=== PATIENT | female | born 1950 | race Caucasian/White ===

== ENCOUNTER 2017-08-08 12:56 | Inpatient (IN) | payer MEDICARE, MEDICAID ==
--- NOTE | 2017-08-08 13:36 | ED Physician Chart ---
ED Chief Complaint/HPI - Patient Information Date Seen:: 08/08/17 Time Seen:: 13:25 Chief Complaint:: hallucinations History of Present Illness:: Patient states she has a stalker and notified the police. Yesterday patient developed pruritic lesions which she said are bed bug bites. Vitals:: Vital Signs - 8 hr 08/08/17 13:05 Temp 98.5 F HR 95 RR 18 BP 129/78 O2 Sat % 99 Historian:: Patient Review:: Nurse's Note Reviewed ED Review of Systems - Review of Systems General/Constitutional: No fever, No chills Skin: Skin lesions, Rash Head: Headache Eyes: No loss of vision ENT: No earache Neck: Neck pain Cardio Vascular: No chest pain Pulmonary: No SOB GI: No nausea, No vomiting G/U: No dysuria Musculoskeletal: Bone or joint pain Endocrine: No polyuria Psychiatric: Prior psych history Hematopoietic: No bruising Allergic/Immuno: No urticaria Neurological: No syncope, No focal symptoms ED Past Medical History - Past Medical History Past Medical History: PUD/GERD (patient states she had a brain bleed in 1992 which did not require craniotomy), Other Family History: Heart disease Social History: Smoker, No Alcohol, Care Facility Employment:: Smokes one half pack of cigarettes per day Surgical History: Appendectomy, Hysterectomy, other (ectopic ; breast augmentation) Psychiatricy History: Schizophrenia Medication: Reviewed Family Medical History - Family Member Father Age: 70 Ethnicity: Non- Living Status: Hx Family Cancer: Yes ED Physical Exam - Physical Examination General/Constitutional: Well-developed, well-nourished, Alert, No distress Other Gen/Cons comments:: Patient knows the exact date Head: Atraumatic Eyes: Lids, conjuctiva normal, PERRL Other Skin comments:: 5 nodules up to about 2 cm in diameter on anterior chest and extremities ENMT: External ears, nose nl, Oropharynx nl Other ENMT comments:: few teeth present Neck: No nuchal rigidity Respiratory: Nl effort/Exclusion, Clear to Auscultation Cardio Vascular: RRR, No murmur, gallop, rubs, NL S1 S2 GI: No tenderness/rebounding/guarding, No organomegaly, No hernia, Normal BS's, Nondistended, No mass/bruits, No McBurney tenderness Extremities: Normal digits & nails Neuro/Psych: No focal deficits Misc: Normal back ED Labs/Radiology/EKG Results - Lab Results Results: Laboratory Results - last 24 hr 08/08/17 08/08/17 08/08/17 13:40 13:40 13:40 WBC 9.3 RBC 4.52 Hgb 14.0 Hct 41.9 MCV 92.6 MCH 31.0 MCHC Differential 33.5 RDW 13.1 Plt Count 323 MPV 7.1 Neutrophils % 49.9 Lymphocytes % 34.2 Monocytes % 12.8 H Eosinophils % 2.7 Basophils % 0.4 Sodium 137 Potassium 3.8 Chloride 105 Carbon Dioxide 25.3 Anion Gap 10.5 BUN 15 Creatinine 0.9 Est GFR ( Amer) > 60.0 Est GFR (Non-Af Amer) > 60.0 BUN/Creatinine Ratio 16.7 Glucose 114 H Hemoglobin A1c % 5.4 Calcium 9.3 Total Bilirubin 0.3 AST 17 ALT 11 Alkaline Phosphatase 101 Total Protein 6.9 Albumin 4.0 Globulin 2.9 Albumin/Globulin Ratio 1.4 Triglycerides 125 Cholesterol 226 H LDL Cholesterol Direct 153 HDL Cholesterol 59 Salicylates < 25.0 L Acetaminophen < 10.0 L Ethyl Alcohol < 10 - EKG Interpretations Rate & Rhythm: normal sinus rhythm; rate 83; old inferior myocardial infarction Comments:: Probable old anterior septal VT with a Q wave in V3. ED Assessment - Assessment General Assessment: Skin lesions look like insect bites not scabies ED Septic Shock - . Is Septic Shock (SBP<90, OR Lactate>4 mmol\L) present?: No - <6hrs of presentation: Vital Signs: Vital Signs - 8 hr 08/08/17 13:05 Temp 98.5 F HR 95 RR 18 BP 129/78 O2 Sat % 99 ED Reassessment (Disposition) - Reassessment Reassessment Condition:: Unchanged - Diagnosis Diagnosis:: Schizophrenia; insect bite - Patient Disposition Admitted to:: [facility] Admitting Medical Physician:: Jovan Govea Admitting Psych Physician:: Cherie Maguire Condition at Disposition:: Stable, Unchanged ED Discharge Plan - Patient Disposition Instructions: Psychosis
[2017-08-08 13:51] LABS: % BASOPHILS 0.4 % (0.0-2.0); % EOSINOPHILS 2.7 % (0.0-5.0); % LYMPHOCYTES 34.2 % (20.0-50.0); % MONOCYTES 12.8 % (2.0-10.0); % NEUTROPHILS 49.9 % (40.0-80.0); HEMATOCRIT 41.9 % (41.0-60); MEAN CELL VOLUME 92.6 fl (81-100); MEAN CORPUSCULAR HGB CONC 33.5 pg (28.0-36.0); MEAN PLATELET VOLUME 7.1 fl; NEUTROPHILE ABSOLUTE 4.6 Th/cmm (1.8-8.0); PLATELET COUNT 323 Th/cmm (150-400); RED BLOOD COUNT 4.52 Mil/cmm (3.80-5.20); RED CELL DISTRIBUTION WIDTH 13.1 % (11.5-20.0); WHITE BLOOD COUNT 9.3 Th/cmm (4.8-10.8)
[2017-08-08 14:10] LABS: ACETAMINOPHEN < 10.0 ug/mL (10.0-30.0); ALB/GLOB RATIO 1.4 (1.0-1.8); ALKALINE PHOSPHATASE 101 U/L (34-104); ANION GAP 10.5 (7.0-16.0); BILIRUBIN,TOTAL 0.3 mg/dL (0.3-1.0); BUN - UREA NITROGEN 15 mg/dL (7-25); BUN/CREATININE RATIO 16.7; CALCIUM SERUM 9.3 mg/dL (8.6-10.3); CARBON DIOXIDE 25.3 mEq/L (21.0-31.0); CHLORIDE 105 mEq/L (98-107); CHOLESTEROL 226 mg/dL (<200); CREATININE - SERUM 0.9 mg/dL (0.6-1.2); GLUCOSE 114 mg/dL (40-70); POTASSIUM SERUM 3.8 mEq/L (3.5-5.1); SGOT 17 U/L (13-39); SGPT/ALT 11 U/L (7-52); SODIUM SERUM 137 mEq/L (136-145); TRIGLYCERIDES 125 mg/dL (<150)
[2017-08-08] MEDS ORDERED: Haloperidol Lactate 5 mg/mL 1mL Vial ONE (14:55)
[2017-08-08] MEDS ORDERED: Haloperidol Lactate 5 mg/mL 1mL Vial IM ONE (15:00)
[2017-08-08 15:29] VITALS: BP 137/71
[2017-08-08] MEDS ORDERED: Magnesium Hydroxide (MOM) 30 mL UDC PO PRN (15:31)
[2017-08-08] MEDS ORDERED: Maalox 30 mL Cup PO PRN (15:31)
--- NOTE | 2017-08-08 21:13 | History & Physical ---
ADMIT DATE: 08/08/2017 CHIEF COMPLAINT: Psychosis. HISTORY OF PRESENT ILLNESS: The patient is a 66-year-old female with long history of dementia, gastroesophageal refulx, degenerative joint disease, insomnia, admitted to [facility] under Dr. Maguire's service for evaluation and treatment. Apparently, the patient had been very agitated, psychotic. No fever, no chills, no nausea, no vomiting. The patient resumed her medication and diet. PAST MEDICAL HISTORY: Significant for dementia, degenerative joint disease, gastroesophageal refulx, and hyperlipidemia. PAST SURGICAL HISTORY: No recent surgery. ALLERGIES: None. MEDICATIONS: Follow admission reconciliation. SOCIAL HISTORY: No smoking, alcohol, or drugs. FAMILY HISTORY: Noncontributory. REVIEW OF SYSTEMS: RENAL SYSTEM: No history of chronic renal disorder. CARDIOVASCULAR SYSTEM: No coronary artery disease. ENDOCRINE SYSTEM: No diabetes or thyroid problem. GASTROINTESTINAL SYSTEM: No upper or lower GI bleed. NEUROLOGICAL SYSTEM: She has history of dementia, psychosis. MUSCULOSKELETAL SYSTEM: She has degenerative joint disease. PHYSICAL EXAMINATION: GENERAL: She is awake, not coherent. VITAL SIGNS: Temperature 97.9, heart rate 98, blood pressure 137/71. HEENT: Normocephalic. Pupils are reacting to light and accommodation. Sclerae clear. NECK: Supple. Negative for lymphadenopathy, JVD, or bruit. CHEST: Bilateral normal. No rhonchi or wheezing. HEART: S1, S2 normal, no gallop. ABDOMEN: Soft, bowel sounds positive. EXTREMITIES: No edema on exam. BACK: No overt tenderness. SKIN: Intact. BREASTS AND PELVIC EXAM: Done by the primary physician, no complaint. NEUROLOGICAL: She is awake, not coherent. She is moving upper and lower extremities. LABORATORY DATA: White blood cells 9.3, hemoglobin 14, hematocrit 41.9, and platelets 323. Sodium 137, potassium 3.8, BUN 15, creatinine 0.9, glucose 114, cholesterol 226. ASSESSMENT: 1. Degenerative joint disease. 2. Gastroesophageal reflux disease. 3. Hyperlipidemia. 4. Dementia. 5. Psychosis. PLAN: The patient was admitted to the hospital under Dr. Maguire's service. MEDICAL PROBLEMS TO BE ADDRESSED DURING HOSPITALIZATION: Psychosis and dementia. MEDICAL PROBLEMS TO BE ADDRESSED AT DISCHARGE: Degenerative joint disease, gastroesophageal reflux, hyperlipidemia. The patient is medically stable for activity. Thank you, Dr. Maguire, for asking me to see your patient. JOB# [id number]
--- NOTE | 2017-08-09 11:53 | Psychosocial Evaluation ---
DATE OF SERVICE: IDENTIFYING INFORMATION: The patient is a 66-year-old female. CHIEF COMPLAINT: "They stole my money." HISTORY OF PRESENT ILLNESS: The patient was referred from a [facility]. The patient was put on a hold for grave disability. The patient was very paranoid, believed people are after her to hurt her, anxious, restless, eloped from the Emergency Room, disoriented, unpredictable, labile, dirty, unable to formulate a safe plan for self-care. When I talked to her, she said she went to this horrible place called [facility] in [place] and she wanted them to find another place and she felt very upset there. She did not like the place and she said they liked her and sent her here. She was not a very great historian. She was denying that she was trying to harm herself or anybody. She was minimizing the events that led to her admission. PAST PSYCHIATRIC HISTORY: The patient reports she has been hospitalized before many times that she has recently been in the hospital for 4 months. However, when asked about ____ [place]; however, she says she did not like it and they sent her to a [facility] and now she is supposed to go to [facility] from here, but she is refusing to go to anywhere. She reports that she wants to be in a place to be close to transportation. When I explained to her that [facility] is in [place] and that is where she wanted to be, she agreed to think about it. The patient reports she has a prior suicide attempt by overdose. ALLERGIES: The patient has no known drug allergy. MEDICATIONS: She has been on many medications including Seroquel 400 mg twice a day. Also, she is on Klonopin and Thorazine. The patient is unable to tell me the name of her medication, but this is information from the [facility]. FAMILY AND SOCIAL HISTORY: The patient reports that she is . She has one daughter, has nothing to do with her. She says she lost ____, was unable to explain to me how. 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 She was unable to tell if there is any family psychotic disorder. She was talking about her daughter, she has mental illness. She is having a legal problem. MENTAL STATUS EXAMINATION: The patient is appropriately dressed, not well groomed. She looks disheveled. She was paranoid. She has pressured speech. She was easily distracted. She has not been sleeping or eating well, easily agitated, unable to make safe plan for self-care. Her long-term is good for her age, date of . However, she was unable to tell me the exact date, states 08/11/2017. Her immediate memory is poor. She had different account about what happened. Her insight and judgment is impaired. IMPRESSION: AXIS I: Bipolar disorder with psychosis. MEDICAL DIAGNOSES: Deferred to the medical doctor. Her assets, she is accepting treatment. Negative poor coping skills. INITIAL TREATMENT PLAN: The patient will be continued with the Seroquel; however, given her small dose 200 mg twice a day as she is also on Klonopin and Ativan, I chose to keep her only on Ativan as needed. We will do group therapy, milieu therapy, individual therapy. ESTIMATED LENGTH OF STAY: 3-7 days. DISCHARGE CRITERIA: Decreasing psychosis, agitation. After discharge, outpatient treatment. [facility]# [id number]
--- NOTE | 2017-08-09 17:33 | Internal Medicine Prog Note ---
Internal Medicine Subjective - Subjective Service Date: 08/09/17 Patient seen and examined:: with staff (she has headach.she also needs medication for acid reflex.) Patient is:: awake, verbal, in bed, talking Patient Complaints of:: headache Per staff patient has:: no adverse event Internal Medicine Objective - Results Result Diagrams: 08/08/17 13:40 08/08/17 13:40 Recent Labs: Laboratory Last Values WBC 9.3 Th/cmm (4.8-10.8) 08/08/17 13:40 RBC 4.52 Mil/cmm (3.80-5.20) 08/08/17 13:40 Hgb 14.0 gm/dL (12-16) 08/08/17 13:40 Hct 41.9 % (41.0-60) 08/08/17 13:40 MCV 92.6 fl (81-100) 08/08/17 13:40 MCH 31.0 pg (27.0-31.0) 08/08/17 13:40 MCHC Differential 33.5 pg (28.0-36.0) 08/08/17 13:40 RDW 13.1 % (11.5-20.0) 08/08/17 13:40 Plt Count 323 Th/cmm (150-400) 08/08/17 13:40 MPV 7.1 fl 08/08/17 13:40 Neutrophils % 49.9 % (40.0-80.0) 08/08/17 13:40 Lymphocytes % 34.2 % (20.0-50.0) 08/08/17 13:40 Monocytes % 12.8 % (2.0-10.0) H 08/08/17 13:40 Eosinophils % 2.7 % (0.0-5.0) 08/08/17 13:40 Basophils % 0.4 % (0.0-2.0) 08/08/17 13:40 Sodium 137 mEq/L (136-145) 08/08/17 13:40 Potassium 3.8 mEq/L (3.5-5.1) 08/08/17 13:40 Chloride 105 mEq/L (98-107) 08/08/17 13:40 Carbon Dioxide 25.3 mEq/L (21.0-31.0) 08/08/17 13:40 Anion Gap 10.5 (7.0-16.0) 08/08/17 13:40 BUN 15 mg/dL (7-25) 08/08/17 13:40 Creatinine 0.9 mg/dL (0.6-1.2) 08/08/17 13:40 Est GFR ( Amer) > 60.0 ml/min (>90) 08/08/17 13:40 Est GFR (Non-Af Amer) > 60.0 ml/min 08/08/17 13:40 BUN/Creatinine Ratio 16.7 08/08/17 13:40 Glucose 114 mg/dL (40-70) H 08/08/17 13:40 Hemoglobin A1c % 5.4 % (4.0-6.0) 08/08/17 13:40 Calcium 9.3 mg/dL (8.6-10.3) 08/08/17 13:40 Total Bilirubin 0.3 mg/dL (0.3-1.0) 08/08/17 13:40 AST 17 U/L (13-39) 08/08/17 13:40 ALT 11 U/L (7-52) 08/08/17 13:40 Alkaline Phosphatase 101 U/L (34-104) 08/08/17 13:40 Total Protein 6.9 gm/dL (6.0-8.3) 08/08/17 13:40 Albumin 4.0 gm/dL (3.7-5.3) 08/08/17 13:40 Globulin 2.9 gm/dL 08/08/17 13:40 Albumin/Globulin Ratio 1.4 (1.0-1.8) 08/08/17 13:40 Triglycerides 125 mg/dL (<150) 08/08/17 13:40 Cholesterol 226 mg/dL (<200) H 08/08/17 13:40 LDL Cholesterol Direct 153 mg/dL (75-193) 08/08/17 13:40 HDL Cholesterol 59 mg/dL (23-92) 08/08/17 13:40 TSH 1.21 uIU/ml (0.34-5.60) 08/08/17 13:40 Salicylates < 25.0 mg/L (30.0-100.0) L 08/08/17 13:40 Acetaminophen < 10.0 ug/mL (10.0-30.0) L 08/08/17 13:40 Ethyl Alcohol < 10 mg/dL (0-10) 08/08/17 13:40 - Physical Exam Vitals and I&O: Vital Signs Temp 98.2 F 08/09/17 14:32 Pulse 92 08/09/17 14:32 Resp 19 08/09/17 14:32 BP 126/61 08/09/17 14:32 Pulse Ox 98 08/09/17 14:32 Active Medications: Current Medications Acetaminophen (Tylenol) 650 mg PO Q4H PRN PRN Reason: Mild Pain/Headache/T above 101 Stop: 10/07/17 15:30 Acetaminophen (Tylenol 650mg Supp) 650 mg RC Q4H PRN PRN Reason: Mild Pain/Headache/T above 101 Stop: 10/07/17 15:30 Al Hydrox/Mg Hydrox/Simethicone (Maalox) 30 ml PO Q6H PRN PRN Reason: Dyspepsia Stop: 10/07/17 15:30 Lorazepam (Ativan) 0.5 mg PO Q4H PRN PRN Reason: Anxiety/Agitation Stop: 10/08/17 08:00 Last Admin: 08/09/17 16:04 Dose: 0.5 mg Magnesium Hydroxide (Milk Of Magnesia) 30 ml PO DAILY PRN PRN Reason: Constipation Stop: 10/07/17 15:30 Quetiapine Fumarate (Seroquel) 200 mg PO BID ADRIAN PRN Reason: Protocol Stop: 10/08/17 16:59 Last Admin: 08/09/17 16:04 Dose: 200 mg Triamcinolone Acetonide (Kenalog 0.1%) 1 appl TP BID PRN PRN Reason: Itching Stop: 10/09/17 08:59 Zolpidem Tartrate (Ambien) 5 mg PO HS PRN PRN Reason: Insomnia Stop: 10/07/17 15:30 General: alert HEENT: NC/AT, PERRLA, EOMI, anicteric sclerae, throat clear Neck: Supple, No JVD, No thyromegaly, +2 carotid pulse wo bruit, No LAD Lungs: CTAB Cardiovascular: Normal S1, Normal S2, without murmur Abdomen: soft, non-tender, non-distended Extremities: clear Neurological: no change Internal Medicine Assmt/Plan - Assessment Assessment: 1.GERD. 2.TENSION HEADACHE. 3.DJD. 4.PSYCHOSIS. - Plan Plan: FIORACET ONE TAB.Q8 HOUR PRN FOR HEADACHE.PROTONEX 40 MG EVERY DAY.
[2017-08-09] MEDS ORDERED: APAP 325mg/Butalbital 50mg/Caff 40mg Tab PO PRN (17:34)
[2017-08-10] MEDS: APAP 325mg/Butalbital 50mg/Caff 40mg Tab PO PRN ×3 (05:19→19:42)
[2017-08-10] MEDS: Pantoprazole 40 mg EC Tab PO SCH (08:28)
[2017-08-10] MEDS: Triamcinolone Acetonide 0.1% Cream 15 gm TP PRN (19:42)
--- NOTE | 2017-08-10 21:55 | Internal Medicine Prog Note ---
Internal Medicine Subjective - Subjective Service Date: 08/10/17 Patient seen and examined:: without staff Patient is:: awake, verbal, in bed, talking Patient Complaints of:: headache Per staff patient has:: no adverse event Internal Medicine Objective - Results Result Diagrams: 08/08/17 13:40 08/08/17 13:40 Recent Labs: Laboratory Last Values WBC 9.3 Th/cmm (4.8-10.8) 08/08/17 13:40 RBC 4.52 Mil/cmm (3.80-5.20) 08/08/17 13:40 Hgb 14.0 gm/dL (12-16) 08/08/17 13:40 Hct 41.9 % (41.0-60) 08/08/17 13:40 MCV 92.6 fl (81-100) 08/08/17 13:40 MCH 31.0 pg (27.0-31.0) 08/08/17 13:40 MCHC Differential 33.5 pg (28.0-36.0) 08/08/17 13:40 RDW 13.1 % (11.5-20.0) 08/08/17 13:40 Plt Count 323 Th/cmm (150-400) 08/08/17 13:40 MPV 7.1 fl 08/08/17 13:40 Neutrophils % 49.9 % (40.0-80.0) 08/08/17 13:40 Lymphocytes % 34.2 % (20.0-50.0) 08/08/17 13:40 Monocytes % 12.8 % (2.0-10.0) H 08/08/17 13:40 Eosinophils % 2.7 % (0.0-5.0) 08/08/17 13:40 Basophils % 0.4 % (0.0-2.0) 08/08/17 13:40 Sodium 137 mEq/L (136-145) 08/08/17 13:40 Potassium 3.8 mEq/L (3.5-5.1) 08/08/17 13:40 Chloride 105 mEq/L (98-107) 08/08/17 13:40 Carbon Dioxide 25.3 mEq/L (21.0-31.0) 08/08/17 13:40 Anion Gap 10.5 (7.0-16.0) 08/08/17 13:40 BUN 15 mg/dL (7-25) 08/08/17 13:40 Creatinine 0.9 mg/dL (0.6-1.2) 08/08/17 13:40 Est GFR ( Amer) > 60.0 ml/min (>90) 08/08/17 13:40 Est GFR (Non-Af Amer) > 60.0 ml/min 08/08/17 13:40 BUN/Creatinine Ratio 16.7 08/08/17 13:40 Glucose 114 mg/dL (40-70) H 08/08/17 13:40 Hemoglobin A1c % 5.4 % (4.0-6.0) 08/08/17 13:40 Calcium 9.3 mg/dL (8.6-10.3) 08/08/17 13:40 Total Bilirubin 0.3 mg/dL (0.3-1.0) 08/08/17 13:40 AST 17 U/L (13-39) 08/08/17 13:40 ALT 11 U/L (7-52) 08/08/17 13:40 Alkaline Phosphatase 101 U/L (34-104) 08/08/17 13:40 Total Protein 6.9 gm/dL (6.0-8.3) 08/08/17 13:40 Albumin 4.0 gm/dL (3.7-5.3) 08/08/17 13:40 Globulin 2.9 gm/dL 08/08/17 13:40 Albumin/Globulin Ratio 1.4 (1.0-1.8) 08/08/17 13:40 Triglycerides 125 mg/dL (<150) 08/08/17 13:40 Cholesterol 226 mg/dL (<200) H 08/08/17 13:40 LDL Cholesterol Direct 153 mg/dL (75-193) 08/08/17 13:40 HDL Cholesterol 59 mg/dL (23-92) 08/08/17 13:40 TSH 1.21 uIU/ml (0.34-5.60) 08/08/17 13:40 Salicylates < 25.0 mg/L (30.0-100.0) L 08/08/17 13:40 Acetaminophen < 10.0 ug/mL (10.0-30.0) L 08/08/17 13:40 Ethyl Alcohol < 10 mg/dL (0-10) 08/08/17 13:40 RPR NONREACTIVE (NONREACTIVE) 08/08/17 13:40 - Physical Exam Vitals and I&O: Vital Signs Temp 97.4 F 08/10/17 20:00 Pulse 95 08/10/17 20:00 Resp 18 08/10/17 20:00 BP 120/71 08/10/17 20:00 Pulse Ox 98 08/10/17 20:00 Intake & Output 08/10/17 08/10/17 08/11/17 06:59 18:59 05:59 Intake Total 240 900 Balance 240 900 Intake: Oral 240 900 Other: # Voids 1 4 # Bowel Movements 1 Active Medications: Current Medications Acetaminophen (Tylenol 650mg Supp) 650 mg RC Q4H PRN PRN Reason: Mild Pain/Headache/T above 101 Stop: 10/07/17 15:30 Acetaminophen/Butalbital/Caffeine (Fioricet) 1 tab PO Q6H PRN PRN Reason: Tension headache (moderate) Stop: 10/08/17 17:33 Last Admin: 08/10/17 19:42 Dose: 1 tab Al Hydrox/Mg Hydrox/Simethicone (Maalox) 30 ml PO Q6H PRN PRN Reason: Dyspepsia Stop: 10/07/17 15:30 Lorazepam (Ativan) 0.5 mg PO Q4H PRN PRN Reason: Anxiety/Agitation Stop: 10/08/17 08:00 Last Admin: 08/10/17 15:03 Dose: 0.5 mg Magnesium Hydroxide (Milk Of Magnesia) 30 ml PO DAILY PRN PRN Reason: Constipation Stop: 10/07/17 15:30 Pantoprazole Sodium (Protonix) 40 mg PO DAILY ADRIAN Stop: 10/09/17 08:59 Last Admin: 08/10/17 08:28 Dose: 40 mg Quetiapine Fumarate (Seroquel) 200 mg PO BID ADRIAN PRN Reason: Protocol Stop: 10/08/17 16:59 Last Admin: 08/10/17 16:12 Dose: 200 mg Triamcinolone Acetonide (Kenalog 0.1%) 1 appl TP BID PRN PRN Reason: Itching Stop: 10/09/17 08:59 Last Admin: 08/10/17 19:42 Dose: 1 appl Zolpidem Tartrate (Ambien) 5 mg PO HS PRN PRN Reason: Insomnia Stop: 10/07/17 15:30 Last Admin: 08/10/17 21:27 Dose: 5 mg General: alert HEENT: NC/AT, PERRLA, EOMI, anicteric sclerae, throat clear Neck: Supple, No JVD, No thyromegaly, +2 carotid pulse wo bruit, No LAD Lungs: CTAB Cardiovascular: Normal S1, Normal S2, without murmur Abdomen: soft, non-tender, non-distended Extremities: clear Neurological: no change Internal Medicine Assmt/Plan - Assessment Assessment: 1.GERD. 2.TENSION HEADACHE. 3.DJD. 4.PSYCHOSIS. - Plan Plan: continue on current medication and diet.
[2017-08-11] MEDS: APAP 325mg/Butalbital 50mg/Caff 40mg Tab PO PRN ×3 (05:11→17:10)
[2017-08-11] MEDS: Pantoprazole 40 mg EC Tab PO SCH (09:11)
[2017-08-11] MEDS ORDERED: APAP 325mg/Butalbital 50mg/Caff 40mg Tab ONE (17:08)
--- NOTE | 2017-08-11 17:59 | Consultation ---
DATE OF CONSULTATION: 08/10/2017 The patient was evaluated, the patient's chart reviewed. Dr. Dowling is covering for Dr. Maguire. Overnight, nursing staff reported the patient presented in a baseline, very irritable, and easily agitated. Today on [id number] evaluation, the patient presents very easily agitated and irritable in her room. 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 She also reports and perseverates about always finding antisocial ____ always seemed to be after her. MENTAL STATUS EXAMINATION: Still observed to be disorganized, irritable, agitated with paranoia. ASSESSMENT AND PLAN: The patient is a 66-year-old female with a history of bipolar. We will continue with the current psychiatric treatment plan and goals to continue targeting the patient's severe irritability and psychotic symptoms that still persists. We will continue monitoring and evaluating. JOB# [id number]
--- NOTE | 2017-08-11 18:35 | Internal Medicine Prog Note ---
Internal Medicine Subjective - Subjective Service Date: 08/11/17 Patient seen and examined:: with staff Patient is:: awake, verbal, in bed, talking Patient Complaints of:: headache Per staff patient has:: no adverse event Internal Medicine Objective - Results Result Diagrams: 08/08/17 13:40 08/08/17 13:40 Recent Labs: Laboratory Last Values WBC 9.3 Th/cmm (4.8-10.8) 08/08/17 13:40 RBC 4.52 Mil/cmm (3.80-5.20) 08/08/17 13:40 Hgb 14.0 gm/dL (12-16) 08/08/17 13:40 Hct 41.9 % (41.0-60) 08/08/17 13:40 MCV 92.6 fl (81-100) 08/08/17 13:40 MCH 31.0 pg (27.0-31.0) 08/08/17 13:40 MCHC Differential 33.5 pg (28.0-36.0) 08/08/17 13:40 RDW 13.1 % (11.5-20.0) 08/08/17 13:40 Plt Count 323 Th/cmm (150-400) 08/08/17 13:40 MPV 7.1 fl 08/08/17 13:40 Neutrophils % 49.9 % (40.0-80.0) 08/08/17 13:40 Lymphocytes % 34.2 % (20.0-50.0) 08/08/17 13:40 Monocytes % 12.8 % (2.0-10.0) H 08/08/17 13:40 Eosinophils % 2.7 % (0.0-5.0) 08/08/17 13:40 Basophils % 0.4 % (0.0-2.0) 08/08/17 13:40 Sodium 137 mEq/L (136-145) 08/08/17 13:40 Potassium 3.8 mEq/L (3.5-5.1) 08/08/17 13:40 Chloride 105 mEq/L (98-107) 08/08/17 13:40 Carbon Dioxide 25.3 mEq/L (21.0-31.0) 08/08/17 13:40 Anion Gap 10.5 (7.0-16.0) 08/08/17 13:40 BUN 15 mg/dL (7-25) 08/08/17 13:40 Creatinine 0.9 mg/dL (0.6-1.2) 08/08/17 13:40 Est GFR ( Amer) > 60.0 ml/min (>90) 08/08/17 13:40 Est GFR (Non-Af Amer) > 60.0 ml/min 08/08/17 13:40 BUN/Creatinine Ratio 16.7 08/08/17 13:40 Glucose 114 mg/dL (40-70) H 08/08/17 13:40 Hemoglobin A1c % 5.4 % (4.0-6.0) 08/08/17 13:40 Calcium 9.3 mg/dL (8.6-10.3) 08/08/17 13:40 Total Bilirubin 0.3 mg/dL (0.3-1.0) 08/08/17 13:40 AST 17 U/L (13-39) 08/08/17 13:40 ALT 11 U/L (7-52) 08/08/17 13:40 Alkaline Phosphatase 101 U/L (34-104) 08/08/17 13:40 Total Protein 6.9 gm/dL (6.0-8.3) 08/08/17 13:40 Albumin 4.0 gm/dL (3.7-5.3) 08/08/17 13:40 Globulin 2.9 gm/dL 08/08/17 13:40 Albumin/Globulin Ratio 1.4 (1.0-1.8) 08/08/17 13:40 Triglycerides 125 mg/dL (<150) 08/08/17 13:40 Cholesterol 226 mg/dL (<200) H 08/08/17 13:40 LDL Cholesterol Direct 153 mg/dL (75-193) 08/08/17 13:40 HDL Cholesterol 59 mg/dL (23-92) 08/08/17 13:40 TSH 1.21 uIU/ml (0.34-5.60) 08/08/17 13:40 Salicylates < 25.0 mg/L (30.0-100.0) L 08/08/17 13:40 Acetaminophen < 10.0 ug/mL (10.0-30.0) L 08/08/17 13:40 Ethyl Alcohol < 10 mg/dL (0-10) 08/08/17 13:40 RPR NONREACTIVE (NONREACTIVE) 08/08/17 13:40 - Physical Exam Vitals and I&O: Vital Signs Temp 97.4 F 08/10/17 20:00 Pulse 95 08/10/17 20:00 Resp 18 08/10/17 20:00 BP 120/71 08/10/17 20:00 Pulse Ox 98 08/10/17 20:00 Intake & Output 08/10/17 08/11/17 08/11/17 19:59 06:59 18:59 Intake Total Balance Intake: Oral Other: # Voids # Bowel Movements Active Medications: Current Medications Acetaminophen (Tylenol 650mg Supp) 650 mg RC Q4H PRN PRN Reason: Mild Pain/Headache/T above 101 Stop: 10/07/17 15:30 Acetaminophen/Butalbital/Caffeine (Fioricet) 1 tab PO Q6H PRN PRN Reason: Tension headache (moderate) Stop: 10/08/17 17:33 Last Admin: 08/11/17 17:10 Dose: 1 tab Al Hydrox/Mg Hydrox/Simethicone (Maalox) 30 ml PO Q6H PRN PRN Reason: Dyspepsia Stop: 10/07/17 15:30 Lorazepam (Ativan) 0.5 mg PO Q4H PRN PRN Reason: Anxiety/Agitation Stop: 10/08/17 08:00 Last Admin: 08/11/17 14:34 Dose: 0.5 mg Magnesium Hydroxide (Milk Of Magnesia) 30 ml PO DAILY PRN PRN Reason: Constipation Stop: 10/07/17 15:30 Pantoprazole Sodium (Protonix) 40 mg PO DAILY ADRIAN Stop: 10/09/17 08:59 Last Admin: 08/11/17 09:11 Dose: 40 mg Quetiapine Fumarate (Seroquel) 200 mg PO BID ADRIAN PRN Reason: Protocol Stop: 10/08/17 16:59 Last Admin: 08/11/17 16:11 Dose: 200 mg Triamcinolone Acetonide (Kenalog 0.1%) 1 appl TP BID PRN PRN Reason: Itching Stop: 10/09/17 08:59 Last Admin: 08/10/17 19:42 Dose: 1 appl Zolpidem Tartrate (Ambien) 5 mg PO HS PRN PRN Reason: Insomnia Stop: 10/07/17 15:30 Last Admin: 08/10/17 21:27 Dose: 5 mg General: alert HEENT: NC/AT, PERRLA, EOMI, anicteric sclerae, throat clear Neck: Supple, No JVD, No thyromegaly, +2 carotid pulse wo bruit, No LAD Lungs: CTAB Cardiovascular: Normal S1, Normal S2, without murmur Abdomen: soft, non-tender, non-distended Extremities: clear Neurological: no change Internal Medicine Assmt/Plan - Assessment Assessment: 1.GERD. 2.TENSION HEADACHE. 3.DJD. 4.PSYCHOSIS. - Plan Plan: continue on current medication and diet.
[2017-08-12] MEDS: APAP 325mg/Butalbital 50mg/Caff 40mg Tab PO PRN ×2 (07:43→13:51)
[2017-08-12] MEDS: Pantoprazole 40 mg EC Tab PO SCH (08:26)
--- NOTE | 2017-08-12 15:53 | Progress Notes ---
DATE: The patient was seen and evaluated. The patient's chart reviewed. This is Dr. Dowling covering for Dr. Maguire. Today on [id number] evaluation, the patient's nursing staff reported that the patient goes to each room and starts diagnosing other people. Today on [id number] evaluation when attempting to discuss with her the importance of staying within her boundaries in regards to diagnosing other people, she becomes very irritable and agitated. Reports, she gets easily angry. Reported that she is a true therapist and only her can be open to diagnosing others. MENTAL STATUS EXAMINATION: Grandiose, paranoid. ASSESSMENT AND PLAN: The patient is a 66-year-old female with a history of bipolar, with extremely poor boundaries, grandiosity, affecting others by walking into other people's room with poor boundaries due to the patient's current manic state. We will continue with Seroquel at 200 mg p.o. b.i.d. to target the patient with still severe psychotic symptoms and grandiosity. JOB# [id number]
--- NOTE | 2017-08-12 17:28 | Internal Medicine Prog Note ---
Internal Medicine Subjective - Subjective Service Date: 08/12/17 Patient seen and examined:: with staff Patient is:: awake, verbal, in bed, talking Patient Complaints of:: headache Per staff patient has:: no adverse event Internal Medicine Objective - Results Result Diagrams: 08/08/17 13:40 08/08/17 13:40 Recent Labs: Laboratory Last Values WBC 9.3 Th/cmm (4.8-10.8) 08/08/17 13:40 RBC 4.52 Mil/cmm (3.80-5.20) 08/08/17 13:40 Hgb 14.0 gm/dL (12-16) 08/08/17 13:40 Hct 41.9 % (41.0-60) 08/08/17 13:40 MCV 92.6 fl (81-100) 08/08/17 13:40 MCH 31.0 pg (27.0-31.0) 08/08/17 13:40 MCHC Differential 33.5 pg (28.0-36.0) 08/08/17 13:40 RDW 13.1 % (11.5-20.0) 08/08/17 13:40 Plt Count 323 Th/cmm (150-400) 08/08/17 13:40 MPV 7.1 fl 08/08/17 13:40 Neutrophils % 49.9 % (40.0-80.0) 08/08/17 13:40 Lymphocytes % 34.2 % (20.0-50.0) 08/08/17 13:40 Monocytes % 12.8 % (2.0-10.0) H 08/08/17 13:40 Eosinophils % 2.7 % (0.0-5.0) 08/08/17 13:40 Basophils % 0.4 % (0.0-2.0) 08/08/17 13:40 Sodium 137 mEq/L (136-145) 08/08/17 13:40 Potassium 3.8 mEq/L (3.5-5.1) 08/08/17 13:40 Chloride 105 mEq/L (98-107) 08/08/17 13:40 Carbon Dioxide 25.3 mEq/L (21.0-31.0) 08/08/17 13:40 Anion Gap 10.5 (7.0-16.0) 08/08/17 13:40 BUN 15 mg/dL (7-25) 08/08/17 13:40 Creatinine 0.9 mg/dL (0.6-1.2) 08/08/17 13:40 Est GFR ( Amer) > 60.0 ml/min (>90) 08/08/17 13:40 Est GFR (Non-Af Amer) > 60.0 ml/min 08/08/17 13:40 BUN/Creatinine Ratio 16.7 08/08/17 13:40 Glucose 114 mg/dL (40-70) H 08/08/17 13:40 Hemoglobin A1c % 5.4 % (4.0-6.0) 08/08/17 13:40 Calcium 9.3 mg/dL (8.6-10.3) 08/08/17 13:40 Total Bilirubin 0.3 mg/dL (0.3-1.0) 08/08/17 13:40 AST 17 U/L (13-39) 08/08/17 13:40 ALT 11 U/L (7-52) 08/08/17 13:40 Alkaline Phosphatase 101 U/L (34-104) 08/08/17 13:40 Total Protein 6.9 gm/dL (6.0-8.3) 08/08/17 13:40 Albumin 4.0 gm/dL (3.7-5.3) 08/08/17 13:40 Globulin 2.9 gm/dL 08/08/17 13:40 Albumin/Globulin Ratio 1.4 (1.0-1.8) 08/08/17 13:40 Triglycerides 125 mg/dL (<150) 08/08/17 13:40 Cholesterol 226 mg/dL (<200) H 08/08/17 13:40 LDL Cholesterol Direct 153 mg/dL (75-193) 08/08/17 13:40 HDL Cholesterol 59 mg/dL (23-92) 08/08/17 13:40 TSH 1.21 uIU/ml (0.34-5.60) 08/08/17 13:40 Salicylates < 25.0 mg/L (30.0-100.0) L 08/08/17 13:40 Acetaminophen < 10.0 ug/mL (10.0-30.0) L 08/08/17 13:40 Ethyl Alcohol < 10 mg/dL (0-10) 08/08/17 13:40 RPR NONREACTIVE (NONREACTIVE) 08/08/17 13:40 - Physical Exam Vitals and I&O: Vital Signs Temp 98.0 F 08/12/17 16:16 Pulse 96 08/12/17 16:16 Resp 18 08/12/17 16:16 BP 113/57 08/12/17 16:16 Pulse Ox 99 08/12/17 16:16 Intake & Output 08/11/17 08/12/17 08/12/17 18:59 06:59 18:59 Intake Total 60 Balance 60 Intake: Oral 60 Other: # Voids 3 # Bowel Movements 0 Active Medications: Current Medications Acetaminophen (Tylenol 650mg Supp) 650 mg RC Q4H PRN PRN Reason: Mild Pain/Headache/T above 101 Stop: 10/07/17 15:30 Acetaminophen/Butalbital/Caffeine (Fioricet) 1 tab PO Q6H PRN PRN Reason: Tension headache (moderate) Stop: 10/08/17 17:33 Last Admin: 08/12/17 13:51 Dose: 1 tab Al Hydrox/Mg Hydrox/Simethicone (Maalox) 30 ml PO Q6H PRN PRN Reason: Dyspepsia Stop: 10/07/17 15:30 Lorazepam (Ativan) 1 mg PO Q6HR PRN; Protocol PRN Reason: Agitation Stop: 10/11/17 12:05 Last Admin: 08/12/17 15:38 Dose: 1 mg Magnesium Hydroxide (Milk Of Magnesia) 30 ml PO DAILY PRN PRN Reason: Constipation Stop: 10/07/17 15:30 Pantoprazole Sodium (Protonix) 40 mg PO DAILY ADRIAN Stop: 10/09/17 08:59 Last Admin: 08/12/17 08:26 Dose: 40 mg Quetiapine Fumarate (Seroquel) 200 mg PO TID ADRIAN PRN Reason: Protocol Stop: 10/11/17 13:59 Last Admin: 08/12/17 13:26 Dose: Not Given Triamcinolone Acetonide (Kenalog 0.1%) 1 appl TP BID PRN PRN Reason: Itching Stop: 10/09/17 08:59 Last Admin: 08/10/17 19:42 Dose: 1 appl Zolpidem Tartrate (Ambien) 5 mg PO HS PRN PRN Reason: Insomnia Stop: 10/07/17 15:30 Last Admin: 08/11/17 21:18 Dose: 5 mg General: alert HEENT: NC/AT, PERRLA, EOMI, anicteric sclerae, throat clear Neck: Supple, No JVD, No thyromegaly, +2 carotid pulse wo bruit, No LAD Lungs: CTAB Cardiovascular: Normal S1, Normal S2, without murmur Abdomen: soft, non-tender, non-distended Extremities: clear Neurological: no change Internal Medicine Assmt/Plan - Assessment Assessment: 1.GERD. 2.TENSION HEADACHE. 3.DJD. 4.PSYCHOSIS. - Plan Plan: continue on current medication and diet.
[2017-08-13] MEDS: APAP 325mg/Butalbital 50mg/Caff 40mg Tab PO PRN ×3 (04:35→16:28)
--- NOTE | 2017-08-13 06:36 | Progress Notes ---
DATE: 08/12/2017 Case was discussed with staff of the patient, reviewed records. The patient continues to have poor insight and continues to be unpredictable, impulsive, needing redirection. Continues to have poor insight. She is hysterically flying today, reporting she needs to see a therapist as soon as possible. She is very upset that her hold was extended yesterday by Dr. Dowling, reporting all psychiatrists are after her money. She is being paranoid, agitated. I will be increasing her Seroquel 200 mg 3 times a day and increase her p.r.n. dose of Ativan 2 mg every 6 hours as needed. The patient continues to be unpredictable, impulsive, not suitable for discharge because of her extremely agitated behavior and so far no side effects with the medication, no sedation, no nausea, no extrapyramidal symptoms. We will continue to work the patient in group therapy, milieu therapy and adjust medications. JOB# [id number]
[2017-08-13] MEDS: Pantoprazole 40 mg EC Tab PO SCH (08:22)
[2017-08-13] MEDS: Triamcinolone Acetonide 0.1% Cream 15 gm TP PRN (11:00)
--- NOTE | 2017-08-13 20:06 | Internal Medicine Prog Note ---
Internal Medicine Subjective - Subjective Service Date: 08/13/17 Patient seen and examined:: with staff Patient is:: awake, verbal, in bed, talking Patient Complaints of:: headache Per staff patient has:: no adverse event Internal Medicine Objective - Results Result Diagrams: 08/08/17 13:40 08/08/17 13:40 Recent Labs: Laboratory Last Values WBC 9.3 Th/cmm (4.8-10.8) 08/08/17 13:40 RBC 4.52 Mil/cmm (3.80-5.20) 08/08/17 13:40 Hgb 14.0 gm/dL (12-16) 08/08/17 13:40 Hct 41.9 % (41.0-60) 08/08/17 13:40 MCV 92.6 fl (81-100) 08/08/17 13:40 MCH 31.0 pg (27.0-31.0) 08/08/17 13:40 MCHC Differential 33.5 pg (28.0-36.0) 08/08/17 13:40 RDW 13.1 % (11.5-20.0) 08/08/17 13:40 Plt Count 323 Th/cmm (150-400) 08/08/17 13:40 MPV 7.1 fl 08/08/17 13:40 Neutrophils % 49.9 % (40.0-80.0) 08/08/17 13:40 Lymphocytes % 34.2 % (20.0-50.0) 08/08/17 13:40 Monocytes % 12.8 % (2.0-10.0) H 08/08/17 13:40 Eosinophils % 2.7 % (0.0-5.0) 08/08/17 13:40 Basophils % 0.4 % (0.0-2.0) 08/08/17 13:40 Sodium 137 mEq/L (136-145) 08/08/17 13:40 Potassium 3.8 mEq/L (3.5-5.1) 08/08/17 13:40 Chloride 105 mEq/L (98-107) 08/08/17 13:40 Carbon Dioxide 25.3 mEq/L (21.0-31.0) 08/08/17 13:40 Anion Gap 10.5 (7.0-16.0) 08/08/17 13:40 BUN 15 mg/dL (7-25) 08/08/17 13:40 Creatinine 0.9 mg/dL (0.6-1.2) 08/08/17 13:40 Est GFR ( Amer) > 60.0 ml/min (>90) 08/08/17 13:40 Est GFR (Non-Af Amer) > 60.0 ml/min 08/08/17 13:40 BUN/Creatinine Ratio 16.7 08/08/17 13:40 Glucose 114 mg/dL (40-70) H 08/08/17 13:40 Hemoglobin A1c % 5.4 % (4.0-6.0) 08/08/17 13:40 Calcium 9.3 mg/dL (8.6-10.3) 08/08/17 13:40 Total Bilirubin 0.3 mg/dL (0.3-1.0) 08/08/17 13:40 AST 17 U/L (13-39) 08/08/17 13:40 ALT 11 U/L (7-52) 08/08/17 13:40 Alkaline Phosphatase 101 U/L (34-104) 08/08/17 13:40 Total Protein 6.9 gm/dL (6.0-8.3) 08/08/17 13:40 Albumin 4.0 gm/dL (3.7-5.3) 08/08/17 13:40 Globulin 2.9 gm/dL 08/08/17 13:40 Albumin/Globulin Ratio 1.4 (1.0-1.8) 08/08/17 13:40 Triglycerides 125 mg/dL (<150) 08/08/17 13:40 Cholesterol 226 mg/dL (<200) H 08/08/17 13:40 LDL Cholesterol Direct 153 mg/dL (75-193) 08/08/17 13:40 HDL Cholesterol 59 mg/dL (23-92) 08/08/17 13:40 TSH 1.21 uIU/ml (0.34-5.60) 08/08/17 13:40 Salicylates < 25.0 mg/L (30.0-100.0) L 08/08/17 13:40 Acetaminophen < 10.0 ug/mL (10.0-30.0) L 08/08/17 13:40 Ethyl Alcohol < 10 mg/dL (0-10) 08/08/17 13:40 RPR NONREACTIVE (NONREACTIVE) 08/08/17 13:40 - Physical Exam Vitals and I&O: Vital Signs Temp 98.1 F 08/13/17 16:10 Pulse 98 08/13/17 16:10 Resp 20 08/13/17 16:10 BP 160/68 08/13/17 16:10 Pulse Ox 96 08/13/17 16:10 Intake & Output 08/13/17 08/13/17 08/14/17 06:59 18:59 06:59 Intake Total 360 1000 Balance 360 1000 Intake: Oral 360 1000 Other: # Voids 2 4 # Bowel Movements 0 1 Active Medications: Current Medications Acetaminophen (Tylenol 650mg Supp) 650 mg RC Q4H PRN PRN Reason: Mild Pain/Headache/T above 101 Stop: 10/07/17 15:30 Acetaminophen/Butalbital/Caffeine (Fioricet) 1 tab PO Q6H PRN PRN Reason: Tension headache (moderate) Stop: 10/08/17 17:33 Last Admin: 08/13/17 16:28 Dose: 1 tab Al Hydrox/Mg Hydrox/Simethicone (Maalox) 30 ml PO Q6H PRN PRN Reason: Dyspepsia Stop: 10/07/17 15:30 Haloperidol (Haldol) 5 mg PO Q6HR PRN; Protocol PRN Reason: Agitation Stop: 10/13/17 00:00 Lorazepam (Ativan) 1 mg PO Q6HR PRN; Protocol PRN Reason: Agitation Stop: 10/11/17 12:05 Last Admin: 08/13/17 19:35 Dose: 1 mg Magnesium Hydroxide (Milk Of Magnesia) 30 ml PO DAILY PRN PRN Reason: Constipation Stop: 10/07/17 15:30 Pantoprazole Sodium (Protonix) 40 mg PO DAILY ADRIAN Stop: 10/09/17 08:59 Last Admin: 08/13/17 08:22 Dose: 40 mg Quetiapine Fumarate (Seroquel) 200 mg PO TID ADRIAN PRN Reason: Protocol Stop: 10/11/17 13:59 Last Admin: 08/13/17 13:57 Dose: 200 mg Triamcinolone Acetonide (Kenalog 0.1%) 1 appl TP BID PRN PRN Reason: Itching Stop: 10/09/17 08:59 Last Admin: 08/13/17 11:00 Dose: 1 appl Zolpidem Tartrate (Ambien) 10 mg PO HS PRN PRN Reason: Insomnia Stop: 10/07/17 15:30 General: alert HEENT: NC/AT, PERRLA, EOMI, anicteric sclerae, throat clear Neck: Supple, No JVD, No thyromegaly, +2 carotid pulse wo bruit, No LAD Lungs: CTAB Cardiovascular: Normal S1, Normal S2, without murmur Abdomen: soft, non-tender, non-distended Extremities: clear Neurological: no change Internal Medicine Assmt/Plan - Assessment Assessment: 1.GERD. 2.TENSION HEADACHE. 3.DJD. 4.PSYCHOSIS. - Plan Plan: continue on current medication and diet.
--- NOTE | 2017-08-13 20:44 | Progress Notes ---
DATE: 08/13/2017 Case was discussed with staff of the patient, reviewed records. The patient is a bit calmer yesterday. She apparently had an individual session seem like she was calmer. After that therapist has told her, made a plan for the staff how to deal with her. Today, she is preoccupied with the situation with her board and care where she was "hurt." She said it was interesting bedbugs. She wanted to be reported. I did tell the staff about it to be reported. She is still depressed, easily agitated, but she is not sleeping well. She said she slept until 3 this morning ____ back to sleep. She said she has agreed with Dr. Dowling when she came. The patient does not do well on the Ambien 5 to increase it to 10 changed to Restoril and so far, no side effects to her medication, no sedation, no nausea. She is on Seroquel 200 mg 3 times a day that was increased yesterday to make further adjustment, work with the patient in group therapy, and adjust medication. JOB# [id number]
[2017-08-14] MEDS: APAP 325mg/Butalbital 50mg/Caff 40mg Tab PO PRN ×3 (05:15→17:47)
[2017-08-14] MEDS: Pantoprazole 40 mg EC Tab PO SCH (08:11)
--- NOTE | 2017-08-14 10:49 | Progress Notes ---
DATE: Case was discussed with staff of the patient. She continues to be very paranoid, feels she is being tortured. Continues to be unpredictable, impulsive, demanding, delusional, paranoid. She reports that she did better when she took Seroquel 400 mg twice a day. So, I will put her back on Seroquel and if needed, we may have to change her medication ____. She had to be given Haldol yesterday and she reports still not working and so far no side effects of the medication. No sedation, no nausea, no extrapyramidal symptoms. We will continue to work with the patient in group therapy, milieu therapy, and adjust the medications as needed. [facility]# [id number]
--- NOTE | 2017-08-14 11:14 | Internal Medicine Prog Note ---
Internal Medicine Subjective - Subjective Service Date: 08/14/17 Patient seen and examined:: with staff (SHE STILL HAS NECK PAIN WITH SPASIM.) Patient is:: awake, verbal, in bed, talking Patient Complaints of:: headache Per staff patient has:: no adverse event Internal Medicine Objective - Results Result Diagrams: 08/08/17 13:40 08/08/17 13:40 Recent Labs: Laboratory Last Values WBC 9.3 Th/cmm (4.8-10.8) 08/08/17 13:40 RBC 4.52 Mil/cmm (3.80-5.20) 08/08/17 13:40 Hgb 14.0 gm/dL (12-16) 08/08/17 13:40 Hct 41.9 % (41.0-60) 08/08/17 13:40 MCV 92.6 fl (81-100) 08/08/17 13:40 MCH 31.0 pg (27.0-31.0) 08/08/17 13:40 MCHC Differential 33.5 pg (28.0-36.0) 08/08/17 13:40 RDW 13.1 % (11.5-20.0) 08/08/17 13:40 Plt Count 323 Th/cmm (150-400) 08/08/17 13:40 MPV 7.1 fl 08/08/17 13:40 Neutrophils % 49.9 % (40.0-80.0) 08/08/17 13:40 Lymphocytes % 34.2 % (20.0-50.0) 08/08/17 13:40 Monocytes % 12.8 % (2.0-10.0) H 08/08/17 13:40 Eosinophils % 2.7 % (0.0-5.0) 08/08/17 13:40 Basophils % 0.4 % (0.0-2.0) 08/08/17 13:40 Sodium 137 mEq/L (136-145) 08/08/17 13:40 Potassium 3.8 mEq/L (3.5-5.1) 08/08/17 13:40 Chloride 105 mEq/L (98-107) 08/08/17 13:40 Carbon Dioxide 25.3 mEq/L (21.0-31.0) 08/08/17 13:40 Anion Gap 10.5 (7.0-16.0) 08/08/17 13:40 BUN 15 mg/dL (7-25) 08/08/17 13:40 Creatinine 0.9 mg/dL (0.6-1.2) 08/08/17 13:40 Est GFR ( Amer) > 60.0 ml/min (>90) 08/08/17 13:40 Est GFR (Non-Af Amer) > 60.0 ml/min 08/08/17 13:40 BUN/Creatinine Ratio 16.7 08/08/17 13:40 Glucose 114 mg/dL (40-70) H 08/08/17 13:40 Hemoglobin A1c % 5.4 % (4.0-6.0) 08/08/17 13:40 Calcium 9.3 mg/dL (8.6-10.3) 08/08/17 13:40 Total Bilirubin 0.3 mg/dL (0.3-1.0) 08/08/17 13:40 AST 17 U/L (13-39) 08/08/17 13:40 ALT 11 U/L (7-52) 08/08/17 13:40 Alkaline Phosphatase 101 U/L (34-104) 08/08/17 13:40 Total Protein 6.9 gm/dL (6.0-8.3) 08/08/17 13:40 Albumin 4.0 gm/dL (3.7-5.3) 08/08/17 13:40 Globulin 2.9 gm/dL 08/08/17 13:40 Albumin/Globulin Ratio 1.4 (1.0-1.8) 08/08/17 13:40 Triglycerides 125 mg/dL (<150) 08/08/17 13:40 Cholesterol 226 mg/dL (<200) H 08/08/17 13:40 LDL Cholesterol Direct 153 mg/dL (75-193) 08/08/17 13:40 HDL Cholesterol 59 mg/dL (23-92) 08/08/17 13:40 TSH 1.21 uIU/ml (0.34-5.60) 08/08/17 13:40 Salicylates < 25.0 mg/L (30.0-100.0) L 08/08/17 13:40 Acetaminophen < 10.0 ug/mL (10.0-30.0) L 08/08/17 13:40 Ethyl Alcohol < 10 mg/dL (0-10) 08/08/17 13:40 RPR NONREACTIVE (NONREACTIVE) 08/08/17 13:40 - Physical Exam Vitals and I&O: Vital Signs Temp 97.8 F 08/14/17 06:14 Pulse 81 08/14/17 06:14 Resp 20 08/14/17 06:14 BP 123/69 08/14/17 06:14 Pulse Ox 95 08/14/17 06:14 Intake & Output 08/13/17 08/14/17 08/14/17 18:59 06:59 18:59 Intake Total 1000 120 Balance 1000 120 Intake: Oral 1000 120 Other: # Voids 4 3 # Bowel Movements 1 0 Active Medications: Current Medications Acetaminophen (Tylenol 650mg Supp) 650 mg RC Q4H PRN PRN Reason: Mild Pain/Headache/T above 101 Stop: 10/07/17 15:30 Acetaminophen (Tylenol) 650 mg PO Q4H PRN PRN Reason: Mild Pain/Headache/T above 101 Stop: 10/13/17 10:24 Acetaminophen/Butalbital/Caffeine (Fioricet) 1 tab PO Q6H PRN PRN Reason: Tension headache (moderate) Stop: 10/08/17 17:33 Last Admin: 08/14/17 05:15 Dose: 1 tab Al Hydrox/Mg Hydrox/Simethicone (Maalox) 30 ml PO Q6H PRN PRN Reason: Dyspepsia Stop: 10/07/17 15:30 Haloperidol (Haldol) 5 mg PO Q6HR PRN; Protocol PRN Reason: Agitation Stop: 10/12/17 20:28 Last Admin: 08/14/17 08:14 Dose: 5 mg Lorazepam (Ativan) 1 mg PO Q6HR PRN; Protocol PRN Reason: Agitation Stop: 10/11/17 12:05 Last Admin: 08/14/17 08:11 Dose: 1 mg Magnesium Hydroxide (Milk Of Magnesia) 30 ml PO DAILY PRN PRN Reason: Constipation Stop: 10/07/17 15:30 Pantoprazole Sodium (Protonix) 40 mg PO DAILY ADRIAN Stop: 10/09/17 08:59 Last Admin: 11/08/17 08:11 Dose: 40 mg Quetiapine Fumarate (Seroquel) 400 mg PO BID ADRIAN PRN Reason: Protocol Stop: 10/13/17 16:59 Triamcinolone Acetonide (Kenalog 0.1%) 1 appl TP BID PRN PRN Reason: Itching Stop: 10/09/17 08:59 Last Admin: 08/13/17 11:00 Dose: 1 appl Zolpidem Tartrate (Ambien) 10 mg PO HS PRN PRN Reason: Insomnia Stop: 10/07/17 15:30 Last Admin: 08/13/17 20:28 Dose: 10 mg General: alert HEENT: NC/AT, PERRLA, EOMI, anicteric sclerae, throat clear Neck: Supple, No JVD, No thyromegaly, +2 carotid pulse wo bruit, No LAD Lungs: CTAB Cardiovascular: Normal S1, Normal S2, without murmur Abdomen: soft, non-tender, non-distended Extremities: clear Neurological: no change Internal Medicine Assmt/Plan - Assessment Assessment: 1.GERD. 2.TENSION HEADACHE. 3.DJD. 4.PSYCHOSIS. 5.NECK PAIN. - Plan Plan: continue on current medication and diet.SOMA 350 MG Q HS.
[2017-08-15] MEDS: Triamcinolone Acetonide 0.1% Cream 15 gm TP PRN ×2 (05:38→20:53)
[2017-08-15] MEDS: Pantoprazole 40 mg EC Tab PO SCH (08:09)
[2017-08-15] MEDS: APAP 325mg/Butalbital 50mg/Caff 40mg Tab PO PRN ×2 (08:10→14:12)
--- NOTE | 2017-08-15 17:52 | Internal Medicine Prog Note ---
Internal Medicine Subjective - Subjective Service Date: 08/15/17 Patient seen and examined:: with staff Patient is:: awake, verbal, in bed, talking Patient Complaints of:: headache Per staff patient has:: no adverse event Internal Medicine Objective - Results Result Diagrams: 08/08/17 13:40 08/08/17 13:40 Recent Labs: Laboratory Last Values WBC 9.3 Th/cmm (4.8-10.8) 08/08/17 13:40 RBC 4.52 Mil/cmm (3.80-5.20) 08/08/17 13:40 Hgb 14.0 gm/dL (12-16) 08/08/17 13:40 Hct 41.9 % (41.0-60) 08/08/17 13:40 MCV 92.6 fl (81-100) 08/08/17 13:40 MCH 31.0 pg (27.0-31.0) 08/08/17 13:40 MCHC Differential 33.5 pg (28.0-36.0) 08/08/17 13:40 RDW 13.1 % (11.5-20.0) 08/08/17 13:40 Plt Count 323 Th/cmm (150-400) 08/08/17 13:40 MPV 7.1 fl 08/08/17 13:40 Neutrophils % 49.9 % (40.0-80.0) 08/08/17 13:40 Lymphocytes % 34.2 % (20.0-50.0) 08/08/17 13:40 Monocytes % 12.8 % (2.0-10.0) H 08/08/17 13:40 Eosinophils % 2.7 % (0.0-5.0) 08/08/17 13:40 Basophils % 0.4 % (0.0-2.0) 08/08/17 13:40 Sodium 137 mEq/L (136-145) 08/08/17 13:40 Potassium 3.8 mEq/L (3.5-5.1) 08/08/17 13:40 Chloride 105 mEq/L (98-107) 08/08/17 13:40 Carbon Dioxide 25.3 mEq/L (21.0-31.0) 08/08/17 13:40 Anion Gap 10.5 (7.0-16.0) 08/08/17 13:40 BUN 15 mg/dL (7-25) 08/08/17 13:40 Creatinine 0.9 mg/dL (0.6-1.2) 08/08/17 13:40 Est GFR ( Amer) > 60.0 ml/min (>90) 08/08/17 13:40 Est GFR (Non-Af Amer) > 60.0 ml/min 08/08/17 13:40 BUN/Creatinine Ratio 16.7 08/08/17 13:40 Glucose 114 mg/dL (40-70) H 08/08/17 13:40 Hemoglobin A1c % 5.4 % (4.0-6.0) 08/08/17 13:40 Calcium 9.3 mg/dL (8.6-10.3) 08/08/17 13:40 Total Bilirubin 0.3 mg/dL (0.3-1.0) 08/08/17 13:40 AST 17 U/L (13-39) 08/08/17 13:40 ALT 11 U/L (7-52) 08/08/17 13:40 Alkaline Phosphatase 101 U/L (34-104) 08/08/17 13:40 Total Protein 6.9 gm/dL (6.0-8.3) 08/08/17 13:40 Albumin 4.0 gm/dL (3.7-5.3) 08/08/17 13:40 Globulin 2.9 gm/dL 08/08/17 13:40 Albumin/Globulin Ratio 1.4 (1.0-1.8) 08/08/17 13:40 Triglycerides 125 mg/dL (<150) 08/08/17 13:40 Cholesterol 226 mg/dL (<200) H 08/08/17 13:40 LDL Cholesterol Direct 153 mg/dL (75-193) 08/08/17 13:40 HDL Cholesterol 59 mg/dL (23-92) 08/08/17 13:40 TSH 1.21 uIU/ml (0.34-5.60) 08/08/17 13:40 Salicylates < 25.0 mg/L (30.0-100.0) L 08/08/17 13:40 Acetaminophen < 10.0 ug/mL (10.0-30.0) L 08/08/17 13:40 Ethyl Alcohol < 10 mg/dL (0-10) 08/08/17 13:40 RPR NONREACTIVE (NONREACTIVE) 08/08/17 13:40 - Physical Exam Vitals and I&O: Vital Signs Temp 97.6 F 08/15/17 14:00 Pulse 105 08/15/17 14:00 Resp 20 08/15/17 14:00 BP 130/64 08/15/17 14:00 Pulse Ox 97 08/15/17 14:00 Intake & Output 08/14/17 08/15/17 08/15/17 18:59 06:59 18:59 Intake Total 1200 120 Balance 1200 120 Intake: Oral 1200 120 Other: # Voids 3 3 # Bowel Movements 1 Active Medications: Current Medications Acetaminophen (Tylenol 650mg Supp) 650 mg RC Q4H PRN PRN Reason: Mild Pain/Headache/T above 101 Stop: 10/07/17 15:30 Acetaminophen (Tylenol) 650 mg PO Q4H PRN PRN Reason: Mild Pain/Headache/T above 101 Stop: 10/13/17 10:24 Acetaminophen/Butalbital/Caffeine (Fioricet) 1 tab PO Q6H PRN PRN Reason: Tension headache (moderate) Stop: 10/08/17 17:33 Last Admin: 08/15/17 14:12 Dose: 1 tab Al Hydrox/Mg Hydrox/Simethicone (Maalox) 30 ml PO Q6H PRN PRN Reason: Dyspepsia Stop: 10/07/17 15:30 Carisoprodol (Soma) 350 mg PO HS PRN PRN Reason: Pain (Moderate) Stop: 10/13/17 11:13 Last Admin: 08/14/17 21:15 Dose: 350 mg Haloperidol (Haldol) 5 mg PO Q6HR PRN; Protocol PRN Reason: Agitation Stop: 10/12/17 20:28 Last Admin: 08/15/17 16:44 Dose: 5 mg Lorazepam (Ativan) 1 mg PO Q6HR PRN; Protocol PRN Reason: Agitation Stop: 10/11/17 12:05 Last Admin: 08/15/17 15:39 Dose: 1 mg Magnesium Hydroxide (Milk Of Magnesia) 30 ml PO DAILY PRN PRN Reason: Constipation Stop: 01/01/18 15:30 Pantoprazole Sodium (Protonix) 40 mg PO DAILY ADRIAN Stop: 10/09/17 08:59 Last Admin: 08/15/17 08:09 Dose: 40 mg Quetiapine Fumarate (Seroquel) 400 mg PO BID ADRIAN PRN Reason: Protocol Stop: 10/13/17 16:59 Last Admin: 08/15/17 16:12 Dose: Not Given Triamcinolone Acetonide (Kenalog 0.1%) 1 appl TP BID PRN PRN Reason: Itching Stop: 10/09/17 08:59 Last Admin: 08/15/17 05:38 Dose: 1 appl Zolpidem Tartrate (Ambien) 10 mg PO HS PRN PRN Reason: Insomnia Stop: 10/07/17 15:30 Last Admin: 08/14/17 21:15 Dose: 10 mg General: alert HEENT: NC/AT, PERRLA, EOMI, anicteric sclerae, throat clear Neck: Supple, No JVD, No thyromegaly, +2 carotid pulse wo bruit, No LAD Lungs: CTAB Cardiovascular: Normal S1, Normal S2, without murmur Abdomen: soft, non-tender, non-distended Extremities: clear Neurological: no change Internal Medicine Assmt/Plan - Assessment Assessment: 1.GERD. 2.TENSION HEADACHE. 3.DJD. 4.PSYCHOSIS. 5.NECK PAIN. - Plan Plan: continue on current medication and diet.SOMA 350 MG Q HS. Nutritional Asmnt/Malnutr-PDOC - Dietary Evaluation Malnutrition Findings (Please click <Entered> for more info): Nutritional Asmnt/Malnutrition Start: 08/15/17 12: 27 Text: Status: Complete Freq: Document 08/15/17 12:27 SHAHNAZ (Rec: 08/15/17 12:43 [facility] [email or web address]) Nutritional Asmnt/Malnutrition Patient General Information Nutritional Screening Low Risk Diagnosis psychosis, dementia Pertinent Medical Hx/Surgical Hx dementia, degenerative joint disease, gastroesophageal refulx, hyperlipidemia Subjective Information Spoke to RN, pt is eating well , consumed 100% of breakfast this morning. Per notes, PO intake 75-100%. Pt does not have concer about food at this time. Current Diet Order/ Nutrition Support Regular, vegetarian Pertinent Medications seroquel Pertinent Labs 08/08: Glu 114H, Chol 226H, A1c 5.4 Nutritional Hx/Data Height 1.57 m Height (Calculated Centimeters) 157.5 Current Weight (lbs) 65.771 kg Weight (Calculated Kilograms) 65.8 Weight (Calculated Grams) 45339.9 [place] Body Weight 110 % [place] Body Weight 132 Body Mass Index (BMI) 26.5 Weight Status Overweight GI Symptoms GI Symptoms None Last BM 08/14 Difficult in: None Skin Integrity/Comment: intact Estimated Nutritional Goals BEE in Kcals: Using Current wt Calories/Kcals/Kg 25-30 Kcals Calculated Protein: Using Current wt Protein g/k.8-1 Protein Calculated 53-66 Fluid: ml Nutritional Problem No current Nutrition Prob Problem N/A Etiology N/A Signs/Symptoms: N/A Malnutrition Alert Protein-Calorie Malnutrition N/A Is there a minimum of two criteria No selected? Query Text:Check all the applicable criteria. A minimum of two criteria are recommended for diagnosis of either severe or non-severe malnutrition. Intervention/Recommendation Comments 1. Continue with current diet as ordered 2. Monitor PO intake, wt weekly, labs, skin 3. F/U as low risk in 7 days, 08/20 Expected Outcomes/Goals Expected Outcomes/Goals 1. PO intake to continue>75% to meet nutritional needs 2. wt stability 3. labs to approach WNL 4. skin to remain intact
--- NOTE | 2017-08-15 21:18 | Progress Notes ---
DATE: 08/15/2017 Case was discussed with staff of the patient, reviewed records. The patient had a counselling today towards ____ disabilities. The patient continues to be labile, continues to be unpredictable, impulsive, needing redirection. She is currently in room by herself, which help, but she gets upset with other people, easily agitated, continues with poor insight. Unable to make safe plan for self-care. She tolerated the increase in Seroquel to 400 mg twice a day and so far no side effects, no sedation, no nausea, no extrapyramidal symptoms. We will continue to work with the patient in group therapy, milieu therapy, adjust medication as needed. JOB# [id number]
[2017-08-16] MEDS: APAP 325mg/Butalbital 50mg/Caff 40mg Tab PO PRN ×2 (05:19→11:20)
[2017-08-16] MEDS: Pantoprazole 40 mg EC Tab PO SCH (08:30)
--- NOTE | 2017-08-16 17:02 | Internal Medicine Prog Note ---
Internal Medicine Subjective - Subjective Service Date: 08/16/17 Patient seen and examined:: without staff Patient is:: awake, verbal, in bed, talking Patient Complaints of:: headache Per staff patient has:: no adverse event Internal Medicine Objective - Results Result Diagrams: 08/08/17 13:40 08/08/17 13:40 Recent Labs: Laboratory Last Values WBC 9.3 Th/cmm (4.8-10.8) 08/08/17 13:40 RBC 4.52 Mil/cmm (3.80-5.20) 08/08/17 13:40 Hgb 14.0 gm/dL (12-16) 08/08/17 13:40 Hct 41.9 % (41.0-60) 08/08/17 13:40 MCV 92.6 fl (81-100) 08/08/17 13:40 MCH 31.0 pg (27.0-31.0) 08/08/17 13:40 MCHC Differential 33.5 pg (28.0-36.0) 08/08/17 13:40 RDW 13.1 % (11.5-20.0) 08/08/17 13:40 Plt Count 323 Th/cmm (150-400) 08/08/17 13:40 MPV 7.1 fl 08/08/17 13:40 Neutrophils % 49.9 % (40.0-80.0) 08/08/17 13:40 Lymphocytes % 34.2 % (20.0-50.0) 08/08/17 13:40 Monocytes % 12.8 % (2.0-10.0) H 08/08/17 13:40 Eosinophils % 2.7 % (0.0-5.0) 08/08/17 13:40 Basophils % 0.4 % (0.0-2.0) 08/08/17 13:40 Sodium 137 mEq/L (136-145) 08/08/17 13:40 Potassium 3.8 mEq/L (3.5-5.1) 08/08/17 13:40 Chloride 105 mEq/L (98-107) 08/08/17 13:40 Carbon Dioxide 25.3 mEq/L (21.0-31.0) 08/08/17 13:40 Anion Gap 10.5 (7.0-16.0) 08/08/17 13:40 BUN 15 mg/dL (7-25) 08/08/17 13:40 Creatinine 0.9 mg/dL (0.6-1.2) 08/08/17 13:40 Est GFR ( Amer) > 60.0 ml/min (>90) 08/08/17 13:40 Est GFR (Non-Af Amer) > 60.0 ml/min 08/08/17 13:40 BUN/Creatinine Ratio 16.7 08/08/17 13:40 Glucose 114 mg/dL (40-70) H 08/08/17 13:40 Hemoglobin A1c % 5.4 % (4.0-6.0) 08/08/17 13:40 Calcium 9.3 mg/dL (8.6-10.3) 08/08/17 13:40 Total Bilirubin 0.3 mg/dL (0.3-1.0) 08/08/17 13:40 AST 17 U/L (13-39) 08/08/17 13:40 ALT 11 U/L (7-52) 08/08/17 13:40 Alkaline Phosphatase 101 U/L (34-104) 08/08/17 13:40 Total Protein 6.9 gm/dL (6.0-8.3) 08/08/17 13:40 Albumin 4.0 gm/dL (3.7-5.3) 08/08/17 13:40 Globulin 2.9 gm/dL 08/08/17 13:40 Albumin/Globulin Ratio 1.4 (1.0-1.8) 08/08/17 13:40 Triglycerides 125 mg/dL (<150) 08/08/17 13:40 Cholesterol 226 mg/dL (<200) H 08/08/17 13:40 LDL Cholesterol Direct 153 mg/dL (75-193) 08/08/17 13:40 HDL Cholesterol 59 mg/dL (23-92) 08/08/17 13:40 TSH 1.21 uIU/ml (0.34-5.60) 08/08/17 13:40 Salicylates < 25.0 mg/L (30.0-100.0) L 08/08/17 13:40 Acetaminophen < 10.0 ug/mL (10.0-30.0) L 08/08/17 13:40 Ethyl Alcohol < 10 mg/dL (0-10) 08/08/17 13:40 RPR NONREACTIVE (NONREACTIVE) 08/08/17 13:40 - Physical Exam Vitals and I&O: Vital Signs Temp 98.5 F 08/16/17 16:11 Pulse 91 08/16/17 16:11 Resp 16 08/16/17 16:11 BP 140/60 08/16/17 16:11 Pulse Ox 95 08/16/17 16:11 Intake & Output 08/15/17 08/16/17 08/16/17 18:59 06:59 18:59 Intake Total 2520 120 Balance 2520 120 Intake: Oral 2520 120 Other: # Voids 4 3 # Bowel Movements 0 Active Medications: Current Medications Acetaminophen (Tylenol 650mg Supp) 650 mg RC Q4H PRN PRN Reason: Mild Pain/Headache/T above 101 Stop: 10/07/17 15:30 Acetaminophen (Tylenol) 650 mg PO Q4H PRN PRN Reason: Mild Pain/Headache/T above 101 Stop: 10/13/17 10:24 Acetaminophen/Butalbital/Caffeine (Fioricet) 1 tab PO Q6H PRN PRN Reason: Tension headache (moderate) Stop: 10/08/17 17:33 Last Admin: 08/16/17 11:20 Dose: 1 tab Al Hydrox/Mg Hydrox/Simethicone (Maalox) 30 ml PO Q6H PRN PRN Reason: Dyspepsia Stop: 10/07/17 15:30 Carisoprodol (Soma) 350 mg PO HS PRN PRN Reason: Pain (Moderate) Stop: 10/13/17 11:13 Last Admin: 08/15/17 20:54 Dose: 350 mg Haloperidol (Haldol) 5 mg PO Q6HR PRN; Protocol PRN Reason: Agitation Stop: 10/12/17 20:28 Last Admin: 08/16/17 15:05 Dose: 5 mg Lorazepam (Ativan) 1 mg PO Q6HR PRN; Protocol PRN Reason: Agitation Stop: 10/11/17 12:05 Last Admin: 08/16/17 13:17 Dose: 1 mg Magnesium Hydroxide (Milk Of Magnesia) 30 ml PO DAILY PRN PRN Reason: Constipation Stop: 10/07/17 15:30 Pantoprazole Sodium (Protonix) 40 mg PO DAILY ADRIAN Stop: 10/09/17 08:59 Last Admin: 08/16/17 08:30 Dose: 40 mg Quetiapine Fumarate (Seroquel) 400 mg PO HS ADRIAN PRN Reason: Protocol Stop: 10/15/17 20:59 Quetiapine Fumarate (Seroquel) 200 mg PO BID ADRIAN PRN Reason: Protocol Stop: 10/15/17 16:59 Last Admin: 08/16/17 16:31 Dose: 200 mg Triamcinolone Acetonide (Kenalog 0.1%) 1 appl TP BID PRN PRN Reason: Itching Stop: 10/09/17 08:59 Last Admin: 08/15/17 20:53 Dose: 1 appl Zolpidem Tartrate (Ambien) 10 mg PO HS PRN PRN Reason: Insomnia Stop: 10/07/17 15:30 Last Admin: 08/15/17 20:54 Dose: 10 mg General: alert HEENT: NC/AT, PERRLA, EOMI, anicteric sclerae, throat clear Neck: Supple, No JVD, No thyromegaly, +2 carotid pulse wo bruit, No LAD Lungs: CTAB Cardiovascular: Normal S1, Normal S2, without murmur Abdomen: soft, non-tender, non-distended Extremities: clear Neurological: no change Internal Medicine Assmt/Plan - Assessment Assessment: 1.GERD. 2.TENSION HEADACHE. 3.DJD. 4.PSYCHOSIS. 5.NECK PAIN. - Plan Plan: continue on current medication and diet.SOMA 350 MG Q HS. Nutritional Asmnt/Malnutr-PDOC - Dietary Evaluation Malnutrition Findings (Please click <Entered> for more info): Nutritional Asmnt/Malnutrition Start: 08/15/17 12: 27 Text: Status: Complete Freq: Document 08/15/17 12:27 THANG (Rec: 08/15/17 12:43 THANG [email or web address]) Nutritional Asmnt/Malnutrition Patient General Information Nutritional Screening Low Risk Diagnosis psychosis, dementia Pertinent Medical Hx/Surgical Hx dementia, degenerative joint disease, gastroesophageal refulx, hyperlipidemia Subjective Information Spoke to RN, pt is eating well , consumed 100% of breakfast this morning. Per notes, PO intake 75-100%. Pt does not have concer about food at this time. Current Diet Order/ Nutrition Support Regular, vegetarian Pertinent Medications seroquel Pertinent Labs 08/08: Glu 114H, Chol 226H, A1c 5.4 Nutritional Hx/Data Height 1.57 m Height (Calculated Centimeters) 157.5 Current Weight (lbs) 65.771 kg Weight (Calculated Kilograms) 65.8 Weight (Calculated Grams) 62042.9 [place] Body Weight 110 % [place] Body Weight 132 Body Mass Index (BMI) 26.5 Weight Status Overweight GI Symptoms GI Symptoms None Last BM 08/14 Difficult in: None Skin Integrity/Comment: intact Estimated Nutritional Goals BEE in Kcals: Using Current wt Calories/Kcals/Kg 25-30 Kcals Calculated Protein: Using Current wt Protein g/k.8-1 Protein Calculated 53-66 Fluid: ml Nutritional Problem No current Nutrition Prob Problem N/A Etiology N/A Signs/Symptoms: N/A Malnutrition Alert Protein-Calorie Malnutrition N/A Is there a minimum of two criteria No selected? Query Text:Check all the applicable criteria. A minimum of two criteria are recommended for diagnosis of either severe or non-severe malnutrition. Intervention/Recommendation Comments 1. Continue with current diet as ordered 2. Monitor PO intake, wt weekly, labs, skin 3. F/U as low risk in 7 days, 08/20 Expected Outcomes/Goals Expected Outcomes/Goals 1. PO intake to continue>75% to meet nutritional needs 2. wt stability 3. labs to approach WNL 4. skin to remain intact
--- NOTE | 2017-08-17 02:31 | Progress Notes ---
DATE: 08/16/2017 Case was discussed with staff of patient and records. The patient states she can handle the Seroquel 400 mg twice a day, would rather take it was 200 mg twice a day and 400 mg at bedtime. She is still labile, unpredictable, impulsive, needing redirection. No side effects with the medication, no sedation, no nausea, no extrapyramidal symptoms and will continue outpatient group therapy, milieu therapy, adjust the medication as needed. JOB# [id number]
[2017-08-17] MEDS: APAP 325mg/Butalbital 50mg/Caff 40mg Tab PO PRN ×3 (04:23→16:44)
[2017-08-17] MEDS: Pantoprazole 40 mg EC Tab PO SCH (08:30)
--- NOTE | 2017-08-17 13:24 | General Progress Note ---
Subjective - Review of Systems Service Date: 08/17/17 Subjective: awake and alert ambulatory c/o loose stools denies abdo pain, fever or chills Objective - Results Result Diagrams: 08/08/17 13:40 08/08/17 13:40 Recent Labs: Laboratory Last Values WBC 9.3 Th/cmm (4.8-10.8) 08/08/17 13:40 RBC 4.52 Mil/cmm (3.80-5.20) 08/08/17 13:40 Hgb 14.0 gm/dL (12-16) 08/08/17 13:40 Hct 41.9 % (41.0-60) 08/08/17 13:40 MCV 92.6 fl (81-100) 08/08/17 13:40 MCH 31.0 pg (27.0-31.0) 08/08/17 13:40 MCHC Differential 33.5 pg (28.0-36.0) 08/08/17 13:40 RDW 13.1 % (11.5-20.0) 08/08/17 13:40 Plt Count 323 Th/cmm (150-400) 08/08/17 13:40 MPV 7.1 fl 08/08/17 13:40 Neutrophils % 49.9 % (40.0-80.0) 08/08/17 13:40 Lymphocytes % 34.2 % (20.0-50.0) 08/08/17 13:40 Monocytes % 12.8 % (2.0-10.0) H 08/08/17 13:40 Eosinophils % 2.7 % (0.0-5.0) 08/08/17 13:40 Basophils % 0.4 % (0.0-2.0) 08/08/17 13:40 Sodium 137 mEq/L (136-145) 08/08/17 13:40 Potassium 3.8 mEq/L (3.5-5.1) 08/08/17 13:40 Chloride 105 mEq/L (98-107) 08/08/17 13:40 Carbon Dioxide 25.3 mEq/L (21.0-31.0) 08/08/17 13:40 Anion Gap 10.5 (7.0-16.0) 08/08/17 13:40 BUN 15 mg/dL (7-25) 08/08/17 13:40 Creatinine 0.9 mg/dL (0.6-1.2) 08/08/17 13:40 Est GFR ( Amer) > 60.0 ml/min (>90) 08/08/17 13:40 Est GFR (Non-Af Amer) > 60.0 ml/min 08/08/17 13:40 BUN/Creatinine Ratio 16.7 08/08/17 13:40 Glucose 114 mg/dL (40-70) H 08/08/17 13:40 Hemoglobin A1c % 5.4 % (4.0-6.0) 08/08/17 13:40 Calcium 9.3 mg/dL (8.6-10.3) 08/08/17 13:40 Total Bilirubin 0.3 mg/dL (0.3-1.0) 08/08/17 13:40 AST 17 U/L (13-39) 08/08/17 13:40 ALT 11 U/L (7-52) 08/08/17 13:40 Alkaline Phosphatase 101 U/L (34-104) 08/08/17 13:40 Total Protein 6.9 gm/dL (6.0-8.3) 08/08/17 13:40 Albumin 4.0 gm/dL (3.7-5.3) 08/08/17 13:40 Globulin 2.9 gm/dL 08/08/17 13:40 Albumin/Globulin Ratio 1.4 (1.0-1.8) 08/08/17 13:40 Triglycerides 125 mg/dL (<150) 08/08/17 13:40 Cholesterol 226 mg/dL (<200) H 08/08/17 13:40 LDL Cholesterol Direct 153 mg/dL (75-193) 08/08/17 13:40 HDL Cholesterol 59 mg/dL (23-92) 08/08/17 13:40 TSH 1.21 uIU/ml (0.34-5.60) 08/08/17 13:40 Salicylates < 25.0 mg/L (30.0-100.0) L 08/08/17 13:40 Acetaminophen < 10.0 ug/mL (10.0-30.0) L 08/08/17 13:40 Ethyl Alcohol < 10 mg/dL (0-10) 08/08/17 13:40 RPR NONREACTIVE (NONREACTIVE) 08/08/17 13:40 - Physical Exam Vitals and I&O: Vital Signs Temp 97.6 F 08/17/17 06:41 Pulse 97 08/17/17 06:41 Resp 20 08/17/17 06:41 BP 122/77 08/17/17 06:41 Pulse Ox 97 08/17/17 06:41 Intake & Output 08/16/17 08/17/17 08/17/17 18:59 06:59 18:59 Intake Total 120 Balance 120 Intake: Oral 120 Other: # Voids 3 Active Medications: Current Medications Acetaminophen (Tylenol 650mg Supp) 650 mg RC Q4H PRN PRN Reason: Mild Pain/Headache/T above 101 Stop: 10/07/17 15:30 Acetaminophen (Tylenol) 650 mg PO Q4H PRN PRN Reason: Mild Pain/Headache/T above 101 Stop: 10/13/17 10:24 Acetaminophen/Butalbital/Caffeine (Fioricet) 1 tab PO Q6H PRN PRN Reason: Tension headache (moderate) Stop: 10/08/17 17:33 Last Admin: 08/17/17 10:30 Dose: 1 tab Al Hydrox/Mg Hydrox/Simethicone (Maalox) 30 ml PO Q6H PRN PRN Reason: Dyspepsia Stop: 10/07/17 15:30 Carisoprodol (Soma) 350 mg PO HS PRN PRN Reason: Pain (Moderate) Stop: 10/13/17 11:13 Last Admin: 08/16/17 21:37 Dose: 350 mg Haloperidol (Haldol) 5 mg PO Q6HR PRN; Protocol PRN Reason: Agitation Stop: 10/12/17 20:28 Last Admin: 08/16/17 15:05 Dose: 5 mg Loperamide HCl (Imodium) 2 mg PO Q4HR PRN PRN Reason: Diarrhea Stop: 10/16/17 11:40 Lorazepam (Ativan) 1 mg PO Q6HR PRN; Protocol PRN Reason: Agitation Stop: 10/11/17 12:05 Last Admin: 08/17/17 12:22 Dose: 1 mg Magnesium Hydroxide (Milk Of Magnesia) 30 ml PO DAILY PRN PRN Reason: Constipation Stop: 10/07/17 15:30 Pantoprazole Sodium (Protonix) 40 mg PO DAILY ADRIAN Stop: 10/09/17 08:59 Last Admin: 08/17/17 08:30 Dose: 40 mg Quetiapine Fumarate (Seroquel) 400 mg PO HS ADRIAN PRN Reason: Protocol Stop: 10/15/17 20:59 Last Admin: 08/16/17 21:00 Dose: 400 mg Quetiapine Fumarate (Seroquel) 200 mg PO BID ADRIAN PRN Reason: Protocol Stop: 10/15/17 16:59 Last Admin: 08/17/17 08:30 Dose: 200 mg Triamcinolone Acetonide (Kenalog 0.1%) 1 appl TP BID PRN PRN Reason: Itching Stop: 10/09/17 08:59 Last Admin: 08/15/17 20:53 Dose: 1 appl Zolpidem Tartrate (Ambien) 10 mg PO HS PRN PRN Reason: Insomnia Stop: 10/07/17 15:30 Last Admin: 08/16/17 21:28 Dose: 10 mg General: Alert, No acute distress HEENT: Atraumatic, PERRLA, EOMI Neck: Supple, JVD Cardiovascular: Regular rate, Normal S1, Normal S2 Lungs: Clear to auscultation Abdomen: Bowel sounds, Soft Neurological: Normal gait Psych/Mental Status: Mental status NL Assessment/Plan - Problem List Patient Problems: All Active Problems Anxiety disorder (Acute) F41.9 GERD without esophagitis (Acute) K21.9 Insomnia (Acute) G47.00 Mild cognitive disorder (Acute) F09 Muscle wasting and atrophy, not elsewhere classified, other site (Acute) M62.58 Paranoid schizophrenia (Acute) F20.0 Suicidal ideation (Acute) - Assessment Assessment: 1.GERD. 2.TENSION HEADACHE. 3.DJD. 4.PSYCHOSIS. 5.NECK PAIN. - Plan Plan: cont current treatment discussed workup for diarrhea does not want blood tests Nutritional Asmnt/Malnutr-PDOC - Dietary Evaluation Malnutrition Findings (Please click <Entered> for more info): Nutritional Asmnt/Malnutrition Start: 08/15/17 12: 27 Text: Status: Complete Freq: Document 08/15/17 12:27 THANG (Rec: 08/15/17 12:43 THANG [email or web address]) Nutritional Asmnt/Malnutrition Patient General Information Nutritional Screening Low Risk Diagnosis psychosis, dementia Pertinent Medical Hx/Surgical Hx dementia, degenerative joint disease, gastroesophageal refulx, hyperlipidemia Subjective Information Spoke to RN, pt is eating well , consumed 100% of breakfast this morning. Per notes, PO intake 75-100%. Pt does not have concer about food at this time. Current Diet Order/ Nutrition Support Regular, vegetarian Pertinent Medications seroquel Pertinent Labs 08/08: Glu 114H, Chol 226H, A1c 5.4 Nutritional Hx/Data Height 1.57 m Height (Calculated Centimeters) 157.5 Current Weight (lbs) 65.771 kg Weight (Calculated Kilograms) 65.8 Weight (Calculated Grams) 68066.9 [place] Body Weight 110 % [place] Body Weight 132 Body Mass Index (BMI) 26.5 Weight Status Overweight GI Symptoms GI Symptoms None Last BM 08/14 Difficult in: None Skin Integrity/Comment: intact Estimated Nutritional Goals BEE in Kcals: Using Current wt Calories/Kcals/Kg 25-30 Kcals Calculated 1551-9206 Protein: Using Current wt Protein g/k.8-1 Protein Calculated 53-66 Fluid: ml [id number] Nutritional Problem No current Nutrition Prob Problem N/A Etiology N/A Signs/Symptoms: N/A Malnutrition Alert Protein-Calorie Malnutrition N/A Is there a minimum of two criteria No selected? Query Text:Check all the applicable criteria. A minimum of two criteria are recommended for diagnosis of either severe or non-severe malnutrition. Intervention/Recommendation Comments 1. Continue with current diet as ordered 2. Monitor PO intake, wt weekly, labs, skin 3. F/U as low risk in 7 days, 08/20 Expected Outcomes/Goals Expected Outcomes/Goals 1. PO intake to continue>75% to meet nutritional needs 2. wt stability 3. labs to approach WNL 4. skin to remain intact
--- NOTE | 2017-08-17 23:07 | Progress Notes ---
DATE: 08/17/2017 Case was discussed with staff of the patient, reviewed records. The patient has no clue that she had a hearing. However, ____ who was in the hearing told me that she declined to come. She says she ____ till the doctor comes here. She is described as being manipulative, medication seeking. She so far is compliant with the medication with no side effects, no sedation, no nausea, no extrapyramidal symptoms. Still unpredictable, impulsive, needing redirection. We will continue outpatient group therapy, milieu therapy, adjust medication as needed. JOB# [id number]
[2017-08-18] MEDS: APAP 325mg/Butalbital 50mg/Caff 40mg Tab PO PRN ×3 (05:27→20:42)
[2017-08-18] MEDS: Pantoprazole 40 mg EC Tab PO SCH (08:39)
--- NOTE | 2017-08-18 17:23 | General Progress Note ---
Subjective - Review of Systems Service Date: 08/18/17 Subjective: awake and alert ambulatory diarrhea resolved Objective - Results Result Diagrams: 08/08/17 13:40 08/08/17 13:40 Recent Labs: Laboratory Last Values WBC 9.3 Th/cmm (4.8-10.8) 08/08/17 13:40 RBC 4.52 Mil/cmm (3.80-5.20) 08/08/17 13:40 Hgb 14.0 gm/dL (12-16) 08/08/17 13:40 Hct 41.9 % (41.0-60) 08/08/17 13:40 MCV 92.6 fl (81-100) 08/08/17 13:40 MCH 31.0 pg (27.0-31.0) 08/08/17 13:40 MCHC Differential 33.5 pg (28.0-36.0) 08/08/17 13:40 RDW 13.1 % (11.5-20.0) 08/08/17 13:40 Plt Count 323 Th/cmm (150-400) 08/08/17 13:40 MPV 7.1 fl 08/08/17 13:40 Neutrophils % 49.9 % (40.0-80.0) 08/08/17 13:40 Lymphocytes % 34.2 % (20.0-50.0) 08/08/17 13:40 Monocytes % 12.8 % (2.0-10.0) H 08/08/17 13:40 Eosinophils % 2.7 % (0.0-5.0) 08/08/17 13:40 Basophils % 0.4 % (0.0-2.0) 08/08/17 13:40 Sodium 137 mEq/L (136-145) 08/08/17 13:40 Potassium 3.8 mEq/L (3.5-5.1) 08/08/17 13:40 Chloride 105 mEq/L (98-107) 08/08/17 13:40 Carbon Dioxide 25.3 mEq/L (21.0-31.0) 08/08/17 13:40 Anion Gap 10.5 (7.0-16.0) 08/08/17 13:40 BUN 15 mg/dL (7-25) 08/08/17 13:40 Creatinine 0.9 mg/dL (0.6-1.2) 08/08/17 13:40 Est GFR ( Amer) > 60.0 ml/min (>90) 08/08/17 13:40 Est GFR (Non-Af Amer) > 60.0 ml/min 08/08/17 13:40 BUN/Creatinine Ratio 16.7 08/08/17 13:40 Glucose 114 mg/dL (40-70) H 08/08/17 13:40 Hemoglobin A1c % 5.4 % (4.0-6.0) 08/08/17 13:40 Calcium 9.3 mg/dL (8.6-10.3) 08/08/17 13:40 Total Bilirubin 0.3 mg/dL (0.3-1.0) 08/08/17 13:40 AST 17 U/L (13-39) 08/08/17 13:40 ALT 11 U/L (7-52) 08/08/17 13:40 Alkaline Phosphatase 101 U/L (34-104) 08/08/17 13:40 Total Protein 6.9 gm/dL (6.0-8.3) 08/08/17 13:40 Albumin 4.0 gm/dL (3.7-5.3) 08/08/17 13:40 Globulin 2.9 gm/dL 08/08/17 13:40 Albumin/Globulin Ratio 1.4 (1.0-1.8) 08/08/17 13:40 Triglycerides 125 mg/dL (<150) 08/08/17 13:40 Cholesterol 226 mg/dL (<200) H 08/08/17 13:40 LDL Cholesterol Direct 153 mg/dL (75-193) 08/08/17 13:40 HDL Cholesterol 59 mg/dL (23-92) 08/08/17 13:40 TSH 1.21 uIU/ml (0.34-5.60) 08/08/17 13:40 Salicylates < 25.0 mg/L (30.0-100.0) L 08/08/17 13:40 Acetaminophen < 10.0 ug/mL (10.0-30.0) L 08/08/17 13:40 Ethyl Alcohol < 10 mg/dL (0-10) 08/08/17 13:40 RPR NONREACTIVE (NONREACTIVE) 08/08/17 13:40 - Physical Exam Vitals and I&O: Vital Signs Temp 98.3 F 08/18/17 16:08 Pulse 89 08/18/17 16:08 Resp 20 08/18/17 16:08 BP 110/68 08/18/17 16:08 Pulse Ox 96 08/18/17 16:08 Intake & Output 08/17/17 08/18/17 08/18/17 18:59 06:59 18:59 Intake Total 700 600 Balance 700 600 Intake: Oral 700 600 Other: # Voids 3 2 # Bowel Movements 2 Active Medications: Current Medications Acetaminophen (Tylenol 650mg Supp) 650 mg RC Q4H PRN PRN Reason: Mild Pain/Headache/T above 101 Stop: 10/07/17 15:30 Acetaminophen (Tylenol) 650 mg PO Q4H PRN PRN Reason: Mild Pain/Headache/T above 101 Stop: 10/13/17 10:24 Acetaminophen/Butalbital/Caffeine (Fioricet) 1 tab PO Q6H PRN PRN Reason: Tension headache (moderate) Stop: 10/08/17 17:33 Last Admin: 08/18/17 12:20 Dose: 1 tab Al Hydrox/Mg Hydrox/Simethicone (Maalox) 30 ml PO Q6H PRN PRN Reason: Dyspepsia Stop: 10/07/17 15:30 Carisoprodol (Soma) 350 mg PO HS PRN PRN Reason: Pain (Moderate) Stop: 10/13/17 11:13 Last Admin: 08/17/17 22:01 Dose: 350 mg Divalproex Sodium (Depakote Er) 250 mg PO Q12HR ADRIAN PRN Reason: Protocol Stop: 10/17/17 20:59 Haloperidol (Haldol) 5 mg PO Q6HR PRN; Protocol PRN Reason: Agitation Stop: 10/12/17 20:28 Last Admin: 08/18/17 11:20 Dose: 5 mg Loperamide HCl (Imodium) 2 mg PO Q4HR PRN PRN Reason: Diarrhea Stop: 10/16/17 11:40 Last Admin: 08/17/17 16:22 Dose: 2 mg Lorazepam (Ativan) 1 mg PO Q6HR PRN; Protocol PRN Reason: Agitation Stop: 10/11/17 12:05 Last Admin: 08/18/17 13:52 Dose: 1 mg Magnesium Hydroxide (Milk Of Magnesia) 30 ml PO DAILY PRN PRN Reason: Constipation Stop: 10/07/17 15:30 Pantoprazole Sodium (Protonix) 40 mg PO DAILY ADRIAN Stop: 10/09/17 08:59 Last Admin: 08/18/17 08:39 Dose: 40 mg Quetiapine Fumarate (Seroquel) 400 mg PO HS ADRIAN PRN Reason: Protocol Stop: 10/15/17 20:59 Last Admin: 08/17/17 20:30 Dose: 400 mg Quetiapine Fumarate (Seroquel) 200 mg PO BID ADRIAN PRN Reason: Protocol Stop: 10/15/17 16:59 Last Admin: 08/18/17 16:27 Dose: 200 mg Triamcinolone Acetonide (Kenalog 0.1%) 1 appl TP BID PRN PRN Reason: Itching Stop: 10/09/17 08:59 Last Admin: 08/15/17 20:53 Dose: 1 appl Zolpidem Tartrate (Ambien) 10 mg PO HS PRN PRN Reason: Insomnia Stop: 10/07/17 15:30 Last Admin: 08/17/17 20:48 Dose: 10 mg General: Alert, No acute distress HEENT: Atraumatic, PERRLA, EOMI Neck: Supple, JVD Cardiovascular: Regular rate, Normal S1, Normal S2 Lungs: Clear to auscultation Abdomen: Bowel sounds, Soft Neurological: Normal gait Psych/Mental Status: Mental status NL Assessment/Plan - Problem List Patient Problems: All Active Problems Anxiety disorder (Acute) F41.9 GERD without esophagitis (Acute) K21.9 Insomnia (Acute) G47.00 Mild cognitive disorder (Acute) F09 Muscle wasting and atrophy, not elsewhere classified, other site (Acute) M62.58 Paranoid schizophrenia (Acute) F20.0 Suicidal ideation (Acute) - Assessment Assessment: 1.GERD. 2.TENSION HEADACHE. 3.DJD. 4.PSYCHOSIS. 5.NECK PAIN. - Plan Plan: cont current treatment Nutritional Asmnt/Malnutr-PDOC - Dietary Evaluation Malnutrition Findings (Please click <Entered> for more info): Nutritional Asmnt/Malnutrition Start: 08/15/17 12: 27 Text: Status: Complete Freq: Document 08/15/17 12:27 LCHENG (Rec: 08/15/17 12:43 [email or web address]) Nutritional Asmnt/Malnutrition Patient General Information Nutritional Screening Low Risk Diagnosis psychosis, dementia Pertinent Medical Hx/Surgical Hx dementia, degenerative joint disease, gastroesophageal refulx, hyperlipidemia Subjective Information Spoke to RN, pt is eating well , consumed 100% of breakfast this morning. Per notes, PO intake 75-100%. Pt does not have concer about food at this time. Current Diet Order/ Nutrition Support Regular, vegetarian Pertinent Medications seroquel Pertinent Labs 08/08: Glu 114H, Chol 226H, A1c 5.4 Nutritional Hx/Data Height 1.57 m Height (Calculated Centimeters) 157.5 Current Weight (lbs) 65.771 kg Weight (Calculated Kilograms) 65.8 Weight (Calculated Grams) 39911.9 [place] Body Weight 110 % [place] Body Weight 132 Body Mass Index (BMI) 26.5 Weight Status Overweight GI Symptoms GI Symptoms None Last BM 08/14 Difficult in: None Skin Integrity/Comment: intact Estimated Nutritional Goals BEE in Kcals: Using Current wt Calories/Kcals/Kg 25-30 Kcals Calculated 6284-9950 Protein: Using Current wt Protein g/k.8-1 Protein Calculated 53-66 Fluid: ml 7812-7493 Nutritional Problem No current Nutrition Prob Problem N/A Etiology N/A Signs/Symptoms: N/A Malnutrition Alert Protein-Calorie Malnutrition N/A Is there a minimum of two criteria No selected? Query Text:Check all the applicable criteria. A minimum of two criteria are recommended for diagnosis of either severe or non-severe malnutrition. Intervention/Recommendation Comments 1. Continue with current diet as ordered 2. Monitor PO intake, wt weekly, labs, skin 3. F/U as low risk in 7 days, 08/20 Expected Outcomes/Goals Expected Outcomes/Goals 1. PO intake to continue>75% to meet nutritional needs 2. wt stability 3. labs to approach WNL 4. skin to remain intact
--- NOTE | 2017-08-19 00:47 | Progress Notes ---
DATE: 08/18/2017 Case was discussed with staff of the patient, reviewed records. When I talked to her today, she is very upset. She says, "how there anybody put me on a 5250 hold and not let me know about this," which is not the case and that she reports that nobody told her about the hearing that since last ____ the hearing while the staff tell me that she declined. She said she will go when the doctor reports she is ready to go. Today, she is getting completely different story. Also, after I talked to her, she came to me while I am dictating and she was angry reporting that somebody was going to murder her because she witnessed a murder. She is still labile, unpredictable, impulsive, needing redirection. We are going to give her an extra dose of Haldol. She is on Haldol as needed to help with her delusional behavior and she is rodriguez, irritable. I will be initiating Depakote on her to help with her impulsivity, mood swings, irritability. We will continue to work with the patient in group therapy and milieu therapy, adjust the medication as needed. JOB# [id number]
[2017-08-19] MEDS: APAP 325mg/Butalbital 50mg/Caff 40mg Tab PO PRN ×3 (05:42→19:00)
[2017-08-19] MEDS: Pantoprazole 40 mg EC Tab PO SCH (08:50)
--- NOTE | 2017-08-19 16:29 | Internal Medicine Prog Note ---
Internal Medicine Subjective - Subjective Service Date: 08/19/17 Patient seen and examined:: with staff (SHE FEELS BETTER) Patient is:: awake, verbal, in bed, talking Patient Complaints of:: headache Per staff patient has:: no adverse event Internal Medicine Objective - Results Result Diagrams: 08/08/17 13:40 08/08/17 13:40 Recent Labs: Laboratory Last Values WBC 9.3 Th/cmm (4.8-10.8) 08/08/17 13:40 RBC 4.52 Mil/cmm (3.80-5.20) 08/08/17 13:40 Hgb 14.0 gm/dL (12-16) 08/08/17 13:40 Hct 41.9 % (41.0-60) 08/08/17 13:40 MCV 92.6 fl (81-100) 08/08/17 13:40 MCH 31.0 pg (27.0-31.0) 08/08/17 13:40 MCHC Differential 33.5 pg (28.0-36.0) 08/08/17 13:40 RDW 13.1 % (11.5-20.0) 08/08/17 13:40 Plt Count 323 Th/cmm (150-400) 08/08/17 13:40 MPV 7.1 fl 08/08/17 13:40 Neutrophils % 49.9 % (40.0-80.0) 08/08/17 13:40 Lymphocytes % 34.2 % (20.0-50.0) 08/08/17 13:40 Monocytes % 12.8 % (2.0-10.0) H 08/08/17 13:40 Eosinophils % 2.7 % (0.0-5.0) 08/08/17 13:40 Basophils % 0.4 % (0.0-2.0) 08/08/17 13:40 Sodium 137 mEq/L (136-145) 08/08/17 13:40 Potassium 3.8 mEq/L (3.5-5.1) 08/08/17 13:40 Chloride 105 mEq/L (98-107) 08/08/17 13:40 Carbon Dioxide 25.3 mEq/L (21.0-31.0) 08/08/17 13:40 Anion Gap 10.5 (7.0-16.0) 08/08/17 13:40 BUN 15 mg/dL (7-25) 08/08/17 13:40 Creatinine 0.9 mg/dL (0.6-1.2) 08/08/17 13:40 Est GFR ( Amer) > 60.0 ml/min (>90) 08/08/17 13:40 Est GFR (Non-Af Amer) > 60.0 ml/min 08/08/17 13:40 BUN/Creatinine Ratio 16.7 08/08/17 13:40 Glucose 114 mg/dL (40-70) H 08/08/17 13:40 Hemoglobin A1c % 5.4 % (4.0-6.0) 08/08/17 13:40 Calcium 9.3 mg/dL (8.6-10.3) 08/08/17 13:40 Total Bilirubin 0.3 mg/dL (0.3-1.0) 08/08/17 13:40 AST 17 U/L (13-39) 08/08/17 13:40 ALT 11 U/L (7-52) 08/08/17 13:40 Alkaline Phosphatase 101 U/L (34-104) 08/08/17 13:40 Total Protein 6.9 gm/dL (6.0-8.3) 08/08/17 13:40 Albumin 4.0 gm/dL (3.7-5.3) 08/08/17 13:40 Globulin 2.9 gm/dL 08/08/17 13:40 Albumin/Globulin Ratio 1.4 (1.0-1.8) 08/08/17 13:40 Triglycerides 125 mg/dL (<150) 08/08/17 13:40 Cholesterol 226 mg/dL (<200) H 08/08/17 13:40 LDL Cholesterol Direct 153 mg/dL (75-193) 08/08/17 13:40 HDL Cholesterol 59 mg/dL (23-92) 08/08/17 13:40 TSH 1.21 uIU/ml (0.34-5.60) 08/08/17 13:40 Salicylates < 25.0 mg/L (30.0-100.0) L 08/08/17 13:40 Acetaminophen < 10.0 ug/mL (10.0-30.0) L 08/08/17 13:40 Ethyl Alcohol < 10 mg/dL (0-10) 08/08/17 13:40 RPR NONREACTIVE (NONREACTIVE) 08/08/17 13:40 - Physical Exam Vitals and I&O: Vital Signs Temp 97.4 F 08/19/17 06:52 Pulse 69 08/19/17 06:52 Resp 19 08/19/17 08:00 BP 138/66 08/19/17 06:52 Pulse Ox 97 08/19/17 06:52 Intake & Output 08/18/17 08/19/17 08/19/17 18:59 06:59 18:59 Intake Total 650 480 Balance 650 480 Intake: Oral 650 480 Other: # Voids 4 2 # Bowel Movements 2 Active Medications: Current Medications Acetaminophen (Tylenol 650mg Supp) 650 mg RC Q4H PRN PRN Reason: Mild Pain/Headache/T above 101 Stop: 10/07/17 15:30 Acetaminophen (Tylenol) 650 mg PO Q4H PRN PRN Reason: Mild Pain/Headache/T above 101 Stop: 10/13/17 10:24 Acetaminophen/Butalbital/Caffeine (Fioricet) 1 tab PO Q6H PRN PRN Reason: Tension headache (moderate) Stop: 10/08/17 17:33 Last Admin: 08/19/17 11:47 Dose: 1 tab Al Hydrox/Mg Hydrox/Simethicone (Maalox) 30 ml PO Q6H PRN PRN Reason: Dyspepsia Stop: 10/07/17 15:30 Carisoprodol (Soma) 350 mg PO HS PRN PRN Reason: Pain (Moderate) Stop: 10/13/17 11:13 Last Admin: 08/18/17 21:44 Dose: 350 mg Divalproex Sodium (Depakote Er) 250 mg PO Q12HR ADRIAN PRN Reason: Protocol Stop: 10/17/17 20:59 Last Admin: 08/19/17 08:50 Dose: 250 mg Haloperidol (Haldol) 5 mg PO Q6HR PRN; Protocol PRN Reason: Agitation Stop: 10/12/17 20:28 Last Admin: 08/18/17 11:20 Dose: 5 mg Loperamide HCl (Imodium) 2 mg PO Q4HR PRN PRN Reason: Diarrhea Stop: 10/16/17 11:40 Last Admin: 08/17/17 16:22 Dose: 2 mg Lorazepam (Ativan) 1 mg PO Q6HR PRN; Protocol PRN Reason: Agitation Stop: 10/11/17 12:05 Last Admin: 08/19/17 02:49 Dose: 1 mg Magnesium Hydroxide (Milk Of Magnesia) 30 ml PO DAILY PRN PRN Reason: Constipation Stop: 10/07/17 15:30 Pantoprazole Sodium (Protonix) 40 mg PO DAILY ADRIAN Stop: 10/09/17 08:59 Last Admin: 08/19/17 08:50 Dose: 40 mg Quetiapine Fumarate (Seroquel) 400 mg PO HS ADRIAN PRN Reason: Protocol Stop: 10/15/17 20:59 Last Admin: 08/18/17 20:42 Dose: 400 mg Quetiapine Fumarate (Seroquel) 200 mg PO BID ADRIAN PRN Reason: Protocol Stop: 10/15/17 16:59 Last Admin: 08/19/17 16:04 Dose: 200 mg Triamcinolone Acetonide (Kenalog 0.1%) 1 appl TP BID PRN PRN Reason: Itching Stop: 10/09/17 08:59 Last Admin: 08/15/17 20:53 Dose: 1 appl Zolpidem Tartrate (Ambien) 10 mg PO HS PRN PRN Reason: Insomnia Stop: 10/07/17 15:30 Last Admin: 08/18/17 20:42 Dose: 10 mg General: alert HEENT: NC/AT, PERRLA, EOMI, anicteric sclerae, throat clear Neck: Supple, No JVD, No thyromegaly, +2 carotid pulse wo bruit, No LAD Lungs: CTAB Cardiovascular: Normal S1, Normal S2, without murmur Abdomen: soft, non-tender, non-distended Extremities: clear Neurological: no change Internal Medicine Assmt/Plan - Assessment Assessment: 1.GERD. 2.TENSION HEADACHE. 3.DJD. 4.PSYCHOSIS. - Plan Plan: continue on current medication and diet. Nutritional Asmnt/Malnutr-PDOC - Dietary Evaluation Malnutrition Findings (Please click <Entered> for more info): Nutritional Asmnt/Malnutrition Start: 08/15/17 12: 27 Text: Status: Complete Freq: Document 08/15/17 12:27 LCSHAHNAZG (Rec: 08/15/17 12:43 [email or web address]) Nutritional Asmnt/Malnutrition Patient General Information Nutritional Screening Low Risk Diagnosis psychosis, dementia Pertinent Medical Hx/Surgical Hx dementia, degenerative joint disease, gastroesophageal refulx, hyperlipidemia Subjective Information Spoke to RN, pt is eating well , consumed 100% of breakfast this morning. Per notes, PO intake 75-100%. Pt does not have concer about food at this time. Current Diet Order/ Nutrition Support Regular, vegetarian Pertinent Medications seroquel Pertinent Labs 08/08: Glu 114H, Chol 226H, A1c 5.4 Nutritional Hx/Data Height 1.57 m Height (Calculated Centimeters) 157.5 Current Weight (lbs) 65.771 kg Weight (Calculated Kilograms) 65.8 Weight (Calculated Grams) 04650.9 [place] Body Weight 110 % [place] Body Weight 132 Body Mass Index (BMI) 26.5 Weight Status Overweight GI Symptoms GI Symptoms None Last BM 08/14 Difficult in: None Skin Integrity/Comment: intact Estimated Nutritional Goals BEE in Kcals: Using Current wt Calories/Kcals/Kg 25-30 Kcals Calculated 1002-5222 Protein: Using Current wt Protein g/k.8-1 Protein Calculated 53-66 Fluid: ml 1677-5094 Nutritional Problem No current Nutrition Prob Problem N/A Etiology N/A Signs/Symptoms: N/A Malnutrition Alert Protein-Calorie Malnutrition N/A Is there a minimum of two criteria No selected? Query Text:Check all the applicable criteria. A minimum of two criteria are recommended for diagnosis of either severe or non-severe malnutrition. Intervention/Recommendation Comments 1. Continue with current diet as ordered 2. Monitor PO intake, wt weekly, labs, skin 3. F/U as low risk in 7 days, 08/20 Expected Outcomes/Goals Expected Outcomes/Goals 1. PO intake to continue>75% to meet nutritional needs 2. wt stability 3. labs to approach WNL 4. skin to remain intact
--- NOTE | 2017-08-19 21:24 | Progress Notes ---
DATE: 08/19/2017 Case was discussed with staff of patient's, reviewed records. The patient today is calmer. The staff tell me yesterday, she talked to Dr. Mcghee, kept asking for pain medication. The staff considered her to be medication seeking at times. She gets angered very easily. I did initiate Depakote on her 250 mg twice a day, and so far she is compliant with the medication with no side effects, no sedation, no nausea, no extrapyramidal symptoms. We will continue to work with the patient in group therapy, milieu therapy, adjust the medication as needed. JOB# [id number]
[2017-08-20] MEDS: APAP 325mg/Butalbital 50mg/Caff 40mg Tab PO PRN ×3 (06:24→18:41)
[2017-08-20] MEDS: Pantoprazole 40 mg EC Tab PO SCH (08:14)
--- NOTE | 2017-08-20 19:39 | Internal Medicine Prog Note ---
Internal Medicine Subjective - Subjective Service Date: 08/20/17 Patient seen and examined:: without staff Patient is:: awake, verbal, in bed, talking Patient Complaints of:: headache Per staff patient has:: no adverse event Internal Medicine Objective - Results Result Diagrams: 08/08/17 13:40 08/08/17 13:40 Recent Labs: Laboratory Last Values WBC 9.3 Th/cmm (4.8-10.8) 08/08/17 13:40 RBC 4.52 Mil/cmm (3.80-5.20) 08/08/17 13:40 Hgb 14.0 gm/dL (12-16) 08/08/17 13:40 Hct 41.9 % (41.0-60) 08/08/17 13:40 MCV 92.6 fl (81-100) 08/08/17 13:40 MCH 31.0 pg (27.0-31.0) 08/08/17 13:40 MCHC Differential 33.5 pg (28.0-36.0) 08/08/17 13:40 RDW 13.1 % (11.5-20.0) 08/08/17 13:40 Plt Count 323 Th/cmm (150-400) 08/08/17 13:40 MPV 7.1 fl 08/08/17 13:40 Neutrophils % 49.9 % (40.0-80.0) 08/08/17 13:40 Lymphocytes % 34.2 % (20.0-50.0) 08/08/17 13:40 Monocytes % 12.8 % (2.0-10.0) H 08/08/17 13:40 Eosinophils % 2.7 % (0.0-5.0) 08/08/17 13:40 Basophils % 0.4 % (0.0-2.0) 08/08/17 13:40 Sodium 137 mEq/L (136-145) 08/08/17 13:40 Potassium 3.8 mEq/L (3.5-5.1) 08/08/17 13:40 Chloride 105 mEq/L (98-107) 08/08/17 13:40 Carbon Dioxide 25.3 mEq/L (21.0-31.0) 08/08/17 13:40 Anion Gap 10.5 (7.0-16.0) 08/08/17 13:40 BUN 15 mg/dL (7-25) 08/08/17 13:40 Creatinine 0.9 mg/dL (0.6-1.2) 08/08/17 13:40 Est GFR ( Amer) > 60.0 ml/min (>90) 08/08/17 13:40 Est GFR (Non-Af Amer) > 60.0 ml/min 08/08/17 13:40 BUN/Creatinine Ratio 16.7 08/08/17 13:40 Glucose 114 mg/dL (40-70) H 08/08/17 13:40 Hemoglobin A1c % 5.4 % (4.0-6.0) 08/08/17 13:40 Calcium 9.3 mg/dL (8.6-10.3) 08/08/17 13:40 Total Bilirubin 0.3 mg/dL (0.3-1.0) 08/08/17 13:40 AST 17 U/L (13-39) 08/08/17 13:40 ALT 11 U/L (7-52) 08/08/17 13:40 Alkaline Phosphatase 101 U/L (34-104) 08/08/17 13:40 Total Protein 6.9 gm/dL (6.0-8.3) 08/08/17 13:40 Albumin 4.0 gm/dL (3.7-5.3) 08/08/17 13:40 Globulin 2.9 gm/dL 08/08/17 13:40 Albumin/Globulin Ratio 1.4 (1.0-1.8) 08/08/17 13:40 Triglycerides 125 mg/dL (<150) 08/08/17 13:40 Cholesterol 226 mg/dL (<200) H 08/08/17 13:40 LDL Cholesterol Direct 153 mg/dL (75-193) 08/08/17 13:40 HDL Cholesterol 59 mg/dL (23-92) 08/08/17 13:40 TSH 1.21 uIU/ml (0.34-5.60) 08/08/17 13:40 Salicylates < 25.0 mg/L (30.0-100.0) L 08/08/17 13:40 Acetaminophen < 10.0 ug/mL (10.0-30.0) L 08/08/17 13:40 Ethyl Alcohol < 10 mg/dL (0-10) 08/08/17 13:40 RPR NONREACTIVE (NONREACTIVE) 08/08/17 13:40 - Physical Exam Vitals and I&O: Vital Signs Temp 98.6 F 08/20/17 06:29 Pulse 89 08/20/17 08:00 Resp 18 08/20/17 08:00 BP 112/52 08/20/17 06:29 Pulse Ox 96 08/20/17 06:29 Intake & Output 08/20/17 08/20/17 08/21/17 06:59 18:59 06:59 Intake Total 240 Balance 240 Intake: Oral 240 Other: # Voids 3 # Bowel Movements 0 Active Medications: Current Medications Acetaminophen (Tylenol 650mg Supp) 650 mg RC Q4H PRN PRN Reason: Mild Pain/Headache/T above 101 Stop: 10/07/17 15:30 Acetaminophen (Tylenol) 650 mg PO Q4H PRN PRN Reason: Mild Pain/Headache/T above 101 Stop: 10/13/17 10:24 Acetaminophen/Butalbital/Caffeine (Fioricet) 1 tab PO Q6H PRN PRN Reason: Tension headache (moderate) Stop: 10/08/17 17:33 Last Admin: 08/20/17 18:41 Dose: 1 tab Al Hydrox/Mg Hydrox/Simethicone (Maalox) 30 ml PO Q6H PRN PRN Reason: Dyspepsia Stop: 10/07/17 15:30 Carisoprodol (Soma) 350 mg PO HS PRN PRN Reason: Pain (Moderate) Stop: 10/13/17 11:13 Last Admin: 08/19/17 22:13 Dose: 350 mg Divalproex Sodium (Depakote Er) 250 mg PO Q12HR ADRIAN PRN Reason: Protocol Stop: 10/17/17 20:59 Last Admin: 08/20/17 08:14 Dose: 250 mg Haloperidol (Haldol) 5 mg PO Q6HR PRN; Protocol PRN Reason: Agitation Stop: 10/12/17 20:28 Last Admin: 08/20/17 11:13 Dose: 5 mg Loperamide HCl (Imodium) 2 mg PO Q4HR PRN PRN Reason: Diarrhea Stop: 10/16/17 11:40 Last Admin: 08/17/17 16:22 Dose: 2 mg Lorazepam (Ativan) 1 mg PO Q6HR PRN; Protocol PRN Reason: Agitation Stop: 10/11/17 12:05 Last Admin: 08/20/17 11:13 Dose: 1 mg Magnesium Hydroxide (Milk Of Magnesia) 30 ml PO DAILY PRN PRN Reason: Constipation Stop: 10/07/17 15:30 Pantoprazole Sodium (Protonix) 40 mg PO DAILY ADRIAN Stop: 10/09/17 08:59 Last Admin: 08/20/17 08:14 Dose: 40 mg Quetiapine Fumarate (Seroquel) 400 mg PO HS ADRIAN PRN Reason: Protocol Stop: 10/15/17 20:59 Last Admin: 08/19/17 20:25 Dose: 400 mg Quetiapine Fumarate (Seroquel) 200 mg PO BID ADRIAN PRN Reason: Protocol Stop: 10/15/17 16:59 Last Admin: 08/20/17 16:03 Dose: 200 mg Triamcinolone Acetonide (Kenalog 0.1%) 1 appl TP BID PRN PRN Reason: Itching Stop: 10/09/17 08:59 Last Admin: 08/15/17 20:53 Dose: 1 appl Zolpidem Tartrate (Ambien) 10 mg PO HS PRN PRN Reason: Insomnia Stop: 10/07/17 15:30 Last Admin: 08/19/17 20:25 Dose: 10 mg General: alert HEENT: NC/AT, PERRLA, EOMI, anicteric sclerae, throat clear Neck: Supple, No JVD, No thyromegaly, +2 carotid pulse wo bruit, No LAD Lungs: CTAB Cardiovascular: Normal S1, Normal S2, without murmur Abdomen: soft, non-tender, non-distended Extremities: clear Neurological: no change Internal Medicine Assmt/Plan - Assessment Assessment: 1.GERD. 2.TENSION HEADACHE. 3.DJD. 4.PSYCHOSIS. - Plan Plan: continue on current medication and diet. Nutritional Asmnt/Malnutr-PDOC - Dietary Evaluation Malnutrition Findings (Please click <Entered> for more info): Nutritional Asmnt/Malnutrition Start: 08/15/17 12: 27 Text: Status: Complete Freq: Document 08/15/17 12:27 THANG (Rec: 08/15/17 12:43 [email or web address]) Nutritional Asmnt/Malnutrition Patient General Information Nutritional Screening Low Risk Diagnosis psychosis, dementia Pertinent Medical Hx/Surgical Hx dementia, degenerative joint disease, gastroesophageal refulx, hyperlipidemia Subjective Information Spoke to RN, pt is eating well , consumed 100% of breakfast this morning. Per notes, PO intake 75-100%. Pt does not have concer about food at this time. Current Diet Order/ Nutrition Support Regular, vegetarian Pertinent Medications seroquel Pertinent Labs 08/08: Glu 114H, Chol 226H, A1c 5.4 Nutritional Hx/Data Height 1.57 m Height (Calculated Centimeters) 157.5 Current Weight (lbs) 65.771 kg Weight (Calculated Kilograms) 65.8 Weight (Calculated Grams) 45277.9 [place] Body Weight 110 % [place] Body Weight 132 Body Mass Index (BMI) 26.5 Weight Status Overweight GI Symptoms GI Symptoms None Last BM 08/14 Difficult in: None Skin Integrity/Comment: intact Estimated Nutritional Goals BEE in Kcals: Using Current wt Calories/Kcals/Kg 25-30 Kcals Calculated 2156-4285 Protein: Using Current wt Protein g/k.8-1 Protein Calculated 53-66 Fluid: ml [id number] Nutritional Problem No current Nutrition Prob Problem N/A Etiology N/A Signs/Symptoms: N/A Malnutrition Alert Protein-Calorie Malnutrition N/A Is there a minimum of two criteria No selected? Query Text:Check all the applicable criteria. A minimum of two criteria are recommended for diagnosis of either severe or non-severe malnutrition. Intervention/Recommendation Comments 1. Continue with current diet as ordered 2. Monitor PO intake, wt weekly, labs, skin 3. F/U as low risk in 7 days, 08/20 Expected Outcomes/Goals Expected Outcomes/Goals 1. PO intake to continue>75% to meet nutritional needs 2. wt stability 3. labs to approach WNL 4. skin to remain intact
--- NOTE | 2017-08-20 22:49 | Progress Notes ---
DATE: 08/20/2017 Case was discussed with staff of the patient, reviewed records. The patient continues to be irritable, continues to be unpredictable, impulsive, needing redirection. She continues to have poor insight, making excuses, report that she did take Depakote because of the forensic psychography ____along with her and ____ her because she takes Depakote, Synthroid, ____ Seroquel. She continues to have poor insight; however, in general, she is a bit more mellow. She is easier to redirect, sleeping better, eating better. No side effects with the medication, no sedation, no nausea, no extrapyramidal symptoms. We will continue outpatient group therapy, milieu therapy and adjust medications. JOB# [id number]
[2017-08-21] MEDS: Pantoprazole 40 mg EC Tab PO SCH (08:52)
[2017-08-21] MEDS: APAP 325mg/Butalbital 50mg/Caff 40mg Tab PO PRN ×3 (08:52→20:52)
--- NOTE | 2017-08-21 10:42 | Progress Notes ---
DATE: 08/21/2017 Case was discussed with staff of the patient, reviewed records. The patient is calmer in general, sleeping better, eating better. No suicidal ideation, no homicidal ideation, no paranoia, no side effects. She is easier to redirect, not as angry, making more sense. No side effects with the medication, no sedation, no nausea, no extrapyramidal symptoms. TSH within normal range. Hemoglobin A1c within normal range. Her CMP was high blood sugar, the rest within normal range with high cholesterol and we will continue outpatient group therapy, milieu therapy, adjust medication as needed. Her Depakote level is pending. JOB# [id number]
--- NOTE | 2017-08-21 19:42 | Internal Medicine Prog Note ---
Internal Medicine Subjective - Subjective Service Date: 08/21/17 Patient seen and examined:: without staff Patient is:: awake, verbal, in bed, talking Patient Complaints of:: headache Per staff patient has:: no adverse event Internal Medicine Objective - Results Result Diagrams: 08/08/17 13:40 08/08/17 13:40 Recent Labs: Laboratory Last Values WBC 9.3 Th/cmm (4.8-10.8) 08/08/17 13:40 RBC 4.52 Mil/cmm (3.80-5.20) 08/08/17 13:40 Hgb 14.0 gm/dL (12-16) 08/08/17 13:40 Hct 41.9 % (41.0-60) 08/08/17 13:40 MCV 92.6 fl (81-100) 08/08/17 13:40 MCH 31.0 pg (27.0-31.0) 08/08/17 13:40 MCHC Differential 33.5 pg (28.0-36.0) 08/08/17 13:40 RDW 13.1 % (11.5-20.0) 08/08/17 13:40 Plt Count 323 Th/cmm (150-400) 08/08/17 13:40 MPV 7.1 fl 08/08/17 13:40 Neutrophils % 49.9 % (40.0-80.0) 08/08/17 13:40 Lymphocytes % 34.2 % (20.0-50.0) 08/08/17 13:40 Monocytes % 12.8 % (2.0-10.0) H 08/08/17 13:40 Eosinophils % 2.7 % (0.0-5.0) 08/08/17 13:40 Basophils % 0.4 % (0.0-2.0) 08/08/17 13:40 Sodium 137 mEq/L (136-145) 08/08/17 13:40 Potassium 3.8 mEq/L (3.5-5.1) 08/08/17 13:40 Chloride 105 mEq/L (98-107) 08/08/17 13:40 Carbon Dioxide 25.3 mEq/L (21.0-31.0) 08/08/17 13:40 Anion Gap 10.5 (7.0-16.0) 08/08/17 13:40 BUN 15 mg/dL (7-25) 08/08/17 13:40 Creatinine 0.9 mg/dL (0.6-1.2) 08/08/17 13:40 Est GFR ( Amer) > 60.0 ml/min (>90) 08/08/17 13:40 Est GFR (Non-Af Amer) > 60.0 ml/min 08/08/17 13:40 BUN/Creatinine Ratio 16.7 08/08/17 13:40 Glucose 114 mg/dL (40-70) H 08/08/17 13:40 Hemoglobin A1c % 5.4 % (4.0-6.0) 08/08/17 13:40 Calcium 9.3 mg/dL (8.6-10.3) 08/08/17 13:40 Total Bilirubin 0.3 mg/dL (0.3-1.0) 08/08/17 13:40 AST 17 U/L (13-39) 08/08/17 13:40 ALT 11 U/L (7-52) 08/08/17 13:40 Alkaline Phosphatase 101 U/L (34-104) 08/08/17 13:40 Total Protein 6.9 gm/dL (6.0-8.3) 08/08/17 13:40 Albumin 4.0 gm/dL (3.7-5.3) 08/08/17 13:40 Globulin 2.9 gm/dL 08/08/17 13:40 Albumin/Globulin Ratio 1.4 (1.0-1.8) 08/08/17 13:40 Triglycerides 125 mg/dL (<150) 08/08/17 13:40 Cholesterol 226 mg/dL (<200) H 08/08/17 13:40 LDL Cholesterol Direct 153 mg/dL (75-193) 08/08/17 13:40 HDL Cholesterol 59 mg/dL (23-92) 08/08/17 13:40 TSH 1.21 uIU/ml (0.34-5.60) 08/08/17 13:40 Salicylates < 25.0 mg/L (30.0-100.0) L 08/08/17 13:40 Acetaminophen < 10.0 ug/mL (10.0-30.0) L 08/08/17 13:40 Ethyl Alcohol < 10 mg/dL (0-10) 08/08/17 13:40 RPR NONREACTIVE (NONREACTIVE) 08/08/17 13:40 - Physical Exam Vitals and I&O: Vital Signs Temp 98.0 F 08/21/17 14:00 Pulse 92 08/21/17 15:38 Resp 19 08/21/17 15:38 BP 144/80 08/21/17 14:00 Pulse Ox 98 08/21/17 14:00 Intake & Output 08/21/17 08/21/17 08/22/17 06:59 18:59 06:59 Intake Total 240 900 Balance 240 900 Intake: Oral 240 900 Other: # Voids 1 3 # Bowel Movements 0 1 Active Medications: Current Medications Acetaminophen (Tylenol 650mg Supp) 650 mg RC Q4H PRN PRN Reason: Mild Pain/Headache/T above 101 Stop: 10/07/17 15:30 Acetaminophen (Tylenol) 650 mg PO Q4H PRN PRN Reason: Mild Pain/Headache/T above 101 Stop: 10/13/17 10:24 Acetaminophen/Butalbital/Caffeine (Fioricet) 1 tab PO Q6H PRN PRN Reason: Tension headache (moderate) Stop: 10/08/17 17:33 Last Admin: 08/21/17 13:56 Dose: 1 tab Al Hydrox/Mg Hydrox/Simethicone (Maalox) 30 ml PO Q6H PRN PRN Reason: Dyspepsia Stop: 10/07/17 15:30 Carisoprodol (Soma) 350 mg PO HS PRN PRN Reason: Pain (Moderate) Stop: 10/13/17 11:13 Last Admin: 08/20/17 20:24 Dose: 350 mg Divalproex Sodium (Depakote Er) 250 mg PO Q12HR ADRIAN PRN Reason: Protocol Stop: 10/17/17 20:59 Last Admin: 08/21/17 08:52 Dose: 250 mg Haloperidol (Haldol) 5 mg PO Q6HR PRN; Protocol PRN Reason: Agitation Stop: 10/12/17 20:28 Last Admin: 08/21/17 08:53 Dose: 5 mg Loperamide HCl (Imodium) 2 mg PO Q4HR PRN PRN Reason: Diarrhea Stop: 10/16/17 11:40 Last Admin: 08/17/17 16:22 Dose: 2 mg Lorazepam (Ativan) 1 mg PO Q6HR PRN; Protocol PRN Reason: Agitation Stop: 10/11/17 12:05 Last Admin: 08/21/17 17:20 Dose: 1 mg Magnesium Hydroxide (Milk Of Magnesia) 30 ml PO DAILY PRN PRN Reason: Constipation Stop: 10/07/17 15:30 Pantoprazole Sodium (Protonix) 40 mg PO DAILY ADRIAN Stop: 10/09/17 08:59 Last Admin: 08/21/17 08:52 Dose: 40 mg Quetiapine Fumarate (Seroquel) 400 mg PO HS ADRIAN PRN Reason: Protocol Stop: 10/15/17 20:59 Last Admin: 08/20/17 20:23 Dose: 400 mg Quetiapine Fumarate (Seroquel) 200 mg PO BID ADRIAN PRN Reason: Protocol Stop: 10/15/17 16:59 Last Admin: 08/21/17 16:30 Dose: 200 mg Triamcinolone Acetonide (Kenalog 0.1%) 1 appl TP BID PRN PRN Reason: Itching Stop: 10/09/17 08:59 Last Admin: 08/15/17 20:53 Dose: 1 appl Zolpidem Tartrate (Ambien) 10 mg PO HS PRN PRN Reason: Insomnia Stop: 10/07/17 15:30 Last Admin: 08/20/17 20:23 Dose: 10 mg General: alert HEENT: NC/AT, PERRLA, EOMI, anicteric sclerae, throat clear Neck: Supple, No JVD, No thyromegaly, +2 carotid pulse wo bruit, No LAD Lungs: CTAB Cardiovascular: Normal S1, Normal S2, without murmur Abdomen: soft, non-tender, non-distended Extremities: clear Neurological: no change Internal Medicine Assmt/Plan - Assessment Assessment: 1.GERD. 2.TENSION HEADACHE. 3.DJD. 4.PSYCHOSIS. - Plan Plan: continue on current medication and diet. Nutritional Asmnt/Malnutr-PDOC - Dietary Evaluation Malnutrition Findings (Please click <Entered> for more info): Nutritional Asmnt/Malnutrition Start: 08/15/17 12: 27 Text: Status: Complete Freq: Document 08/15/17 12:27 [facility] (Rec: 08/15/17 12:43 [facility] [id number]) Nutritional Asmnt/Malnutrition Patient General Information Nutritional Screening Low Risk Diagnosis psychosis, dementia Pertinent Medical Hx/Surgical Hx dementia, degenerative joint disease, gastroesophageal refulx, hyperlipidemia Subjective Information Spoke to RN, pt is eating well , consumed 100% of breakfast this morning. Per notes, PO intake 75-100%. Pt does not have concer about food at this time. Current Diet Order/ Nutrition Support Regular, vegetarian Pertinent Medications seroquel Pertinent Labs 08/08: Glu 114H, Chol 226H, A1c 5.4 Nutritional Hx/Data Height 1.57 m Height (Calculated Centimeters) 157.5 Current Weight (lbs) 65.771 kg Weight (Calculated Kilograms) 65.8 Weight (Calculated Grams) 64835.9 [place] Body Weight 110 % [place] Body Weight 132 Body Mass Index (BMI) 26.5 Weight Status Overweight GI Symptoms GI Symptoms None Last BM 08/14 Difficult in: None Skin Integrity/Comment: intact Estimated Nutritional Goals BEE in Kcals: Using Current wt Calories/Kcals/Kg 25-30 Kcals Calculated 9802-9924 Protein: Using Current wt Protein g/k.8-1 Protein Calculated 53-66 Fluid: ml 7260-7290 Nutritional Problem No current Nutrition Prob Problem N/A Etiology N/A Signs/Symptoms: N/A Malnutrition Alert Protein-Calorie Malnutrition N/A Is there a minimum of two criteria No selected? Query Text:Check all the applicable criteria. A minimum of two criteria are recommended for diagnosis of either severe or non-severe malnutrition. Intervention/Recommendation Comments 1. Continue with current diet as ordered 2. Monitor PO intake, wt weekly, labs, skin 3. F/U as low risk in 7 days, 08/20 Expected Outcomes/Goals Expected Outcomes/Goals 1. PO intake to continue>75% to meet nutritional needs 2. wt stability 3. labs to approach WNL 4. skin to remain intact
[2017-08-22] MEDS: Pantoprazole 40 mg EC Tab PO SCH (08:37)
[2017-08-22] MEDS: APAP 325mg/Butalbital 50mg/Caff 40mg Tab PO PRN ×2 (10:11→16:28)
--- NOTE | 2017-08-22 17:40 | Discharge Summary ---
DATE OF DISCHARGE: 08/22/2017 IDENTIFYING INFORMATION: The patient is a 66-year-old female. HISTORY OF PRESENT ILLNESS: The patient is referred from board and care at [facility]. The patient was put on a hold for grave disability. The patient was very paranoid, believed people are after her to hurt her, anxious, restless, eloped from the Emergency Room, disoriented, unpredictable, labile, dirty, unable to formally safe plan for self-care. When I talked to her, she said she went to a horrible place called [facility] in [place], and she wanted them to find another place and she felt very upset. She did not like the place and she said they lied to her and sent her here. She was not a very great historian. She was denying that she was trying to harm self or anybody, minimize events that led to her admission. The patient was hospitalized before many times; recently been in the hospital for 4 months. She was at [place], she did not like it, and they sent her to [facility], and now she is supposed to go to [facility] upon discharge. Refusing to go anywhere. She reports that she wants to be in a place close to transportation. The patient has no known drug allergies. COURSE IN THE HOSPITAL: The patient was initiated on Seroquel. She was on 400 twice a day, going down to 200 after I found out that the patient started to become manic, irritable, angry. So I increased the dose again slowly 200 mg twice a day and 400 mg at bedtime. The patient also was given at times Haldol as needed because of extreme agitation, manic, irritable behavior. I later added Seroquel ____ irritability, yelling and screaming, demanding. She did have a court hearing in the hospital, she was put on 14-day hold and it was upheld on the ground of grave disability. The patient, however, progressively got better. She got very well when she was started on Depakote 250 mg twice a day, started to become more mellow. She was sleeping well, eating well. She was no longer acting in a demanding, irritable manner. The patient also was kept on her medications. She was kept on carisoprodol and Imodium at times, pantoprazole and triamcinolone by Dr. John. The patient was doing well. She was sleeping well, eating well, no longer acting in anyway dangerous. We felt she could be discharged to a lesser level of care. I did order her Depakote level that is still pending, but could be done at [facility]. FINAL DIAGNOSES: AXIS I: Bipolar disorder, manic with psychosis. MEDICAL DIAGNOSES: Referred Dr. Govea. The patient will be going to [facility] and will follow up with the psychiatrist and a therapist and a primary care physician, Dr. Govea. EXPECTED OUTCOME: Stable if the patient complies with treatment. JOB# [id number]
== END 2017-08-22 18:45 | DRG 885 ==
LOC: ER 12:56 → GERO 14:48
PROVIDERS: ADMIT Psychiatry & Neurology Psychiatry; ATTEND Psychiatry & Neurology Psychiatry
DX: F30.2 Manic episode, severe with psychotic symptoms (principal); F03.90 Unspecified dementia, unspecified severity, without behavioral disturbance, psychotic disturbance, mood disturbance, and anxiety; E78.5 Hyperlipidemia, unspecified; K21.9 Gastro-esophageal reflux disease without esophagitis; M19.90 Unspecified osteoarthritis, unspecified site; F29 Unspecified psychosis not due to a substance or known physiological condition; G47.00 Insomnia, unspecified; G44.209 Tension-type headache, unspecified, not intractable; M54.9 Dorsalgia, unspecified; F41.9 Anxiety disorder, unspecified; F17.210 Nicotine dependence, cigarettes, uncomplicated; W57.XXXA Bitten or stung by nonvenomous insect and other nonvenomous arthropods, initial encounter; Y93.89 Activity, other specified; Y92.89 Other specified places as the place of occurrence of the external cause; Y99.8 Other external cause status; Z82.49 Family history of ischemic heart disease and other diseases of the circulatory system; Z90.49 Acquired absence of other specified parts of digestive tract; Z90.710 Acquired absence of both cervix and uterus
CPT/HCPCS: 36415-UA; 80053-TC; 80061-TC; 80320-TC; 80329-TC; 83036-90; 84443-TC; 85025-TC; 86592-TC; 90899; 93005; G0410; J1200; J1630; J2060; Z7610